=== PATIENT | female | born 1955 | race Caucasian/White ===

== ENCOUNTER 2021-05-30 14:05 | Emergency (ER) | payer MEDICARE, BC, SELFPAY ==
--- NOTE | 2021-05-30 14:15 | ED.SKABFB ---
HPI - Skin/Abscess/Foreign Bdy General Chief complaint: Skin/Abscess/Foreign Body Stated complaint: Blisters on lower leg Time Seen by Provider: 05/30/21 14:15 Source: patient, RN notes reviewed and old records reviewed Mode of arrival: ambulatory Limitations: no limitations History of Present Illness HPI narrative: 66-year-old female presents to the [facility] with redness, blisters and swelling to the right lower leg. At first denied any past medical history. When asked again patient states she does have a history of hypertension however she lost a lot of weight and was told she did not need her blood pressure medication anymore. States the last time she saw Was approximately 3 years ago. Denies any history of diabetes, congestive heart failure. Has had wounds on her right lower leg for approximately 8 weeks, 1 week ago started with small blisters similar to the left leg. Patient is also complaining of shortness of breath. Has not been able to lay flat for several months. Related Data Home Medications Medication Instructions Recorded Confirmed No Home Medications 05/30/21 05/30/21 Allergies Allergy/AdvReac Type Severity Reaction Status Date / Time latex Allergy Unknown Verified 10/26/09 11:29 No Known Allergies Allergy Unverified 09/19/17 12:37 Review of Systems Review of Systems: All systems reviewed & are unremarkable except as noted in HPI and below Constitutional: Constitutional: Reports no additional constitutional complaints, Denies chills, Denies fever(s), Denies headache(s) and Denies weakness Eyes: Eyes: Reports no additional eye complaints and Denies change in vision ENT: Reports system reviewed and no additional complaints, except as documented, Denies dysphagia, Denies dizziness, Denies headache(s), Denies nasal congestion and Denies sore throat Cardiovascular: Cardiovascular: Reports no additional cardiovascular complaints, Denies chest pain, Denies syncope and Denies dyspnea Respiratory: Respiratory: Reports as per HPI, Denies chest congestion, Denies cough, Reports dyspnea (When laying flat) and Denies wheezing Gastrointestinal: Gastrointestinal: Reports no additional gastrointestinal complaints, Denies abdominal pain, Denies dysphagia, Denies diarrhea, Denies nausea and Denies vomiting Musculoskeletal: Musculoskeletal: Reports as per HPI and Denies numbness Integumentary/Breasts: Skin/Breast: Reports as per HPI, Reports erythema (Bilateral lower legs, worse on right than left), Reports sores (Open sores right lower leg) and Reports other (Blisters noted to left lower leg.) Neurologic: Reports system reviewed and no additional complaints, except as documented, Denies dizziness, Denies syncope, Denies headache(s), Denies focal weakness, Denies numbness and Denies weakness Psychiatric: Psychiatric: Reports no additional psychiatric complaints Allergic/Immunologic: Allergic/Immunologic: Reports no additional allergic/immunologic complaints PMFSH Past Medical History Medical History (Updated 05/30/21 @ 14:53 by Oxana Gordon APRN) Patient denies medical problems Surgical History Surgical History (Updated 05/30/21 @ 14:48 by Oxana Gordon APRN) No history of previous surgery Social History Social History (Updated 05/30/21 @ 14:48 by Oxana Gordon APRN) Gender identity (if verbalized by the patient): Female Comments At the time of my signature, I reviewed and agree with the nursing past medical, surgical, social, and family history. There is no relevant family history pertinent to the patient complaint. Exam Const: General: no acute distress, alert and ill appearing chronically Nutritional Appearance: well nourished and obese morbidly obese Orientation/consciousness: patient oriented x3 Limitations: no limitations HENMT: Head: normal to inspection Ears: external ears normal Eyes: Pupils: Equal, round and reactive pupils present Neck: Neck: normal visual inspection,
[2021-05-30 14:17] VITALS: BP 198/106; PULSE 111; RESP 20; TEMP 37.2; O2SAT 99
[2021-05-30 14:33] LABS: Glucose Point of Care 314 mg/dl (65-105)
--- NOTE | 2021-05-30 14:44 | PC.NURSE ---
pt moved to room 1 from room 6. pt feeling sob after walking to room. ekg done, ems en route and iv established.
--- NOTE | 2021-05-30 16:07 | ECG_ITS ---
Measurements Intervals [place] Rate: 106 P: 69 GA: 159 QRS: 38 QRSD: 98 T: 9 QT: 297 QTc: 394 Interpretive Statements SINUS TACHYCARDIA WITH OCCASIONAL SUPRAVENTRICULAR AND VENTRICULAR PREMATURE COMPLEXES NONSPECIFIC ST & T-WAVE ABNORMALITY BASELINE ARTIFACT ANTEROLATERAL ST ABNORMALITY CONSIDER ISCHEMIA ABNORMAL ECG COMPARED TO ECG 06/17/2018 13:14:20 ST-WAVE ABNORMALITY MORE PROMINENT Electronically Signed On 05-30-2021 16:58:36 CDT by Kareem Barker M.D.
== END 2021-05-30 14:47 | disposition short-term general hospital (02) ==
PROVIDERS: Emergency Provider Nurse Practitioner
DX: L03.115 Cellulitis of right lower limb (principal); I10 Essential (primary) hypertension; E11.9 Type 2 diabetes mellitus without complications; S80.822A Blister (nonthermal), left lower leg, initial encounter; S81.801A Unspecified open wound, right lower leg, initial encounter; X58.XXXA Exposure to other specified factors, initial encounter
CPT/HCPCS: 82948; 93005; 99215; G0463

== ENCOUNTER 2021-05-30 15:08 | Inpatient (IN) | payer MEDICARE, BC, SELFPAY ==
[2021-05-30] VITALS (7 sets, daily range): BP systolic 151–197; BP diastolic 66–90; PULSE 92–102; RESP 16–20; TEMP 36.1–36.8; O2SAT 95–100; BMI 41.5
--- NOTE | ~2021-05-30 | XR_ITS ---
EXAMINATION: XR abdomen/kub 1V EXAM DATE: 06/01/2021 14:38 INDICATION: Nausea, vomiting. TECHNIQUE: Frontal projection(s) of the abdomen for interpretation. There is no prior study for marysol cisneros. FINDINGS: There is expected amount of colonic stool and gas. No small bowel dilation, nonobstructiv e bowel gas pattern. There are no suspicious calcifications identified. There is no organomegaly suspected. The bones are unremarkable. IMPRESSION: Unremarkable abdomen x-ray exam. Reviewed, dictated and finalized at location B.
--- NOTE | ~2021-05-30 | US_ITS ---
EXAMINATION: US arterial duplex LE BI, US arterial ankle brachial ind DATE: 05/31/2021 10:30 INDICATION: Nonhealing wound in the right lower limb. Vascular disease risk factors of diabetes, hype rtension and smoking. TECHNIQUE: Segmental pressures and plethysmographic and Doppler waveforms of the brachial and lower e xtremity arteries were obtained. Additional grayscale and color Doppler imaging of the arteries of th e bilateral lower limbs were obtained. COMPARISON: None. FINDINGS: Right and left brachial artery pressures of 199 mm Hg and 189 mm Hg, respectively, are concordant (no rmal difference <= 30 mmHg). The right ankle-brachial index (MANISH) was unable to be obtained due to inability to occlude the vessel s at the right ankle. The right great toe-brachial index (TBI) is 0.52 (normal >= 0.65). Arterial Dop pler waveforms demonstrate brisk systolic upstrokes throughout the arteries of the right lower limb. No evident hemodynamically significant or plaque noted on grayscale imaging or focally significant gr adient peaks systolic velocities to suggest significant stenosis and the arteries of the right lower limb. The left MANISH was unable to be obtained due to inability to occlude the vessels at the left ankle. The right great toe-brachial index (TBI) is 0.57 (normal >= 0.65). Arterial Doppler waveforms demonstrat e brisk systolic upstrokes throughout the arteries of the left lower limb. No evident hemodynamically significant or plaque noted on grayscale imaging or focally significant gradient peaks systolic [place] to suggest significant stenosis and the arteries of the left lower limb. IMPRESSION: 1. Mild arterial occlusive disease to the bilateral lower limbs with mildly decreased bilateral TBIs. Reviewed, dictated and finalized at location A. IMPRESSION: 1. Mild arterial occlusive disease to the bilateral lower limbs with mildly dec reased bilateral TBIs.
[2021-05-30 15:16] LABS: Glucose Point of Care 319 mg/dl (65-105)
[2021-05-30 16:14] LABS: Basophils Absolute Auto 0.1 K/mm3 (0.0-0.1); Basophils Percent Auto 0.4 % (0.2-1.2); Eosinophils Absolute Auto 0.2 K/mm3 (0-0.3); Hematocrit 42.9 % (37.0-47.0); Hemoglobin 14.4 g/dL (12.0-15.0); Immature Granulocyte Absolute 0.04 K/mm3 (0.00-0.031); Immature Granulocyte Percent A 0.3 % (0-0.5); Lymphocytes Absolute Auto 1.99 K/mm3 (0.9-3.2); Lymphocytes Percent Auto 16.3 % (18.3-44.2); Mean Corpuscular HGB Conc 33.6 g/dl (32-36); Mean Corpuscular Hemoglobin 30.6 pg (26-34); Mean Corpuscular Volume 91.3 fl (80-100); Mean Platelet Volume 11.5 fl (7.4-10.4); Monocytes Percent Auto 7.9 % (2.6-8.5); Neutrophils Absolute Auto 8.9 K/mm3 (1.3-6.7); Neutrophils Percent Auto 73.1 % (45.5-73.1); Platelet Count Result 156 k/mm3 (150-375); Red Cell Distribution Width 13.4 % (11.5-14.5); White Blood Count 12.2 K/mm3 (4.5-10.0)
[2021-05-30 16:20] LABS: Add Urine Microscopic? YES; Appearance Urine Cloudy (Clear); Bacteria Urine Trace /hpf; Bilirubin Urine Negative (Negative); Blood Urine 1+ (Negative); Color Urine Yellow (Yellow); Glucose Urine UA 3+ mg/dL (Negative); Ketones Urine Trace mg/dL (Negative); Leukocyte Esterase Ur 3+ LEU/UL (Negative); Mucus Urine Rare /lpf; Nitrate Urine Negative (Negative); Protein Urine 2+ mg/dL (Negative); RBC Urine 21-50 /hpf (0-2); Specific Grav Ur 1.018 (1.001-1.035); Squamous Epithelial Cell Urine Few /hpf (Few); Urobilinogen Urine Negative mg/dL (<2.0); WBC Urine 51-75 /hpf
[2021-05-30 16:26] LABS: Alanine Aminotransferase 16 U/L (4-35); Alkaline Phosphatase 113 U/L (38-126); Anion Gap 4 mmol/L (8-16); Aspartate Amino Transferase 16 U/L (14-36); Bilirubin,Total 0.9 mg/dL (0.2-1.3); Blood Urea Nitrogen 12 mg/dL (7-17); Calcium 8.9 mg/dL (8.4-10.2); Carbon Dioxide 31 mmol/L (22-30); Chloride 99 mmol/L (98-107); Estimated Glomerular Filt Rate > 60; Glucose 340 mg/dL (65-110); Lipase 131 U/L (23-300); Potassium 4.2 mmol/L (3.4-5.0); Sodium 134 mmol/L (137-145)
[2021-05-30 16:41] LABS: Lactic Acid Reflex 1.2 mmol/L (0.7-2.1)
--- NOTE | 2021-05-30 16:44 | ED.GENADULT ---
HPI - General Adult General Chief complaint: Unspecified Stated complaint: possible leg cellulitis Time Seen by Provider: 05/30/21 15:22 Source: patient History of Present Illness HPI narrative: 66-year-old female presents to the emergency department for evaluation of a right lower leg cellulitis. Patient states she has had the right lower leg wound for approximately 6 to 8 weeks. Patient states it started off as a small lesion but has been steadily worsening. Patient does report increased generalized fatigue. Patient presented to urgent care for evaluation. Patient was found to have an elevated blood sugar. On arrival to the emergency department the patient's blood sugar was greater than 340. Patient does report increased thirst and increased urination. Patient denies ever being previously diagnosed with diabetes. Patient reports she had previously been on blood pressure medications but was able to stop those approximately 4 to 5 years ago due to her blood pressure improving due to weight loss. Patient states over the last few years she has had increased weight gain and worsening blood pressure. Patient also describes orthopnea and sleeps in a chair most nights. Related Data Home Medications Medication Instructions Recorded Confirmed No Home Medications 05/30/21 05/30/21 Allergies Allergy/AdvReac Type Severity Reaction Status Date / Time latex Allergy Unknown Difficulty Verified 05/30/21 15:55 Breathing Review of Systems Review of Systems: CONSTITUTIONAL: Increased generalized fatigue EYES: Denies visual changes, redness, or discharge. ENT: Denies rhinorrhea, congestion, sore throat, or otalgia. CARDIOVASCULAR: Denies chest pain, palpitations, or edema. RESPIRATORY: Orthopnea and exertional shortness of breath GASTROINTESTINAL: Denies abdominal pain, nausea, vomiting, or diarrhea. GENITOURINARY: Denies dysuria or hematuria. SKIN: Worsening cellulitis of left lower extremity MUSCULOSKELETAL: Denies back pain, joint pain, or myalgia. NEUROLOGIC: Denies headache, numbness, or weakness. All systems reviewed & are unremarkable except as noted in HPI and below PMFSH Past Medical History Medical History (Updated 05/30/21 @ 17:19 by Austen Perez MD) Patient denies medical problems Surgical History Surgical History (Updated 05/30/21 @ 14:48 by Oxana Gordon APRN) No history of previous surgery Social History Social History (Updated 05/30/21 @ 14:48 by Oxana Gordon APRN) Gender identity (if verbalized by the patient): Female Exam Narrative: APPEARANCE: Well appearing, no pain, no distress, well-nourished. HEAD: normocephalic, atraumatic. EYES: PERRLA/EOMI, conjunctivae clear. NOSE: Normal no drainage NECK: Supple. No adenopathy, no masses. RESPIRATORY: Airway patent, respirations nonlabored. Clear to auscultation bilaterally, no rales, rhonchi, wheezing. CARDIOVASCULAR: Regular rate and rhythm without murmurs rubs or gallops. ABDOMINAL: Soft, nontender, nondistended, normal bowel sounds MUSCULOSKELETAL: Moves all extremities. Bilateral lower extremity edema. Right lower extremity cellulitis involving lateral aspects of the lower extremity NEURO: Alert. Cranial nerves II through XII intact. Grossly intact SKIN: Right lower extremity cellulitis Course Course Emergency Course: Patient was started on Rocephin for her cellulitis. Patient also has a urinary tract infection. Patient was hyperglycemic and was treated with insulin and IV fluids. Hemoglobin A1c is 11.1. No evidence of DKA. Case was discussed with the hospitalist and patient was accepted for admission. Vital Signs Vital signs: Vital Signs Temperature 98.2 F 05/30/21 15:20 Pulse Rate 101 H 05/30/21 15:20 Respiratory Rate 18 05/30/21 15:20 Blood Pressure 194/84 H 05/30/21 15:20 Pulse Oximetry 99 05/30/21 15:20 Temperature 98.2 F 05/30/21 15:20 Pulse Rate 95 05/30/21 17:43 Respiratory Rate 19 0
[2021-05-30] MEDS: INSULIN HUMAN REGULAR (*BKC) 100 UNITS/ML 7 UNITS IV PUSH (16:53)
[2021-05-30 17:25] LABS: Hemoglobin A1C 11.1 % (<5.7)
--- NOTE | 2021-05-30 17:25 | PM.IMHP ---
H&P: HPI History of Present Illness Date/Time: 05/30/21 17:25 Chief Complaint: Hyperglycemia and suspected right leg cellulitis. Narrative: This is a 66-year-old female with hypertension and obstructive sleep apnea who presented to the emergency department from urgent care for evaluation of hyperglycemia and suspected right leg cellulitis. About 2 months ago she developed small blisters on her lower legs and within the last month or so the blisters on her right leg have increased in size and are now open. The wound is shallow and she has been trying to take meticulous care of it, applying triple antibiotic ointment and dry bandages frequently as apparently it has started to weep. The last couple of days she has developed redness around the wound with a burning discomfort. She went to urgent care today for evaluation and labs done at that time showed a glucose of well over 300 and she was sent to the ER. She has not seen a doctor for over 5 years and she has no known history of prediabetes or diabetes. With further questioning she does endorse and ongoing yeast infection for the last 6 months which has not improved with [id number] treatment. She denies fever, chills, sweats, nausea, and vomiting. Review of Systems Review of Systems: Twelve systems were reviewed. She had previously lost weight was able to come off of her antihypertensives however over the last 5 years her weight has began to creep back up as well as her blood pressure. She was previously given a CPAP however she has not used that for many years as it never really worked correctly anyway, per her report. She has always drank a lot of water and she has not noticed any significant change in her consumption. She has mild blurry vision in her eyes which she attributes to forming cataracts. Appetite has been okay. No dysuria, frequency, or urgency. Except as documented, all other systems were reviewed and are negative. [facility], [facility] Past Medical History Medical History Hypertension Obstructive sleep apnea Surgical History Surgical History (Updated 05/30/21 @ 21:47 by Samina Iqbal PA-C) History of laparoscopy With destruction of ovarian cyst. Family History Family History (Updated 05/30/21 @ 21:47 by Samina Iqbal PA-C) Other Diabetes mellitus Hypertension Social History Social History (Updated 05/30/21 @ 21:48 by Samina Iqbal PA-C) Social History: Surrogate decision maker: Stas Beebe, spouse. Code status: Full code. Smoking packs per day: 1 Smoking cigarettes per day: 20.0 Years smoked: 40 Smoking pack-years: 40.00 Smoking status: Former smoker Second hand tobacco smoke exposure: No Alcohol intake: never Substance use: never Substance use type: does not use Additional living arrangements comments: The patient lives with her in [place]. Additional occupation/education comments: Retired from [employer]. Spiritual care concerns: No Meds Home Medications and Allergies Home Medications Medication Instructions Recorded Confirmed Type No Home Medications 05/30/21 05/30/21 History Allergies Allergy/AdvReac Type Severity Reaction Status Date / Time latex Allergy Unknown Difficulty Verified 05/30/21 15:55 Breathing Vital Signs Vital Signs - 24 hr 05/30/21 15:20 05/30/21 15:54 05/30/21 16:42 Temperature 98.2 F Pulse Rate 101 H 102 H 93 Respiratory Rate 18 20 16 Blood Pressure 194/84 H 197/90 H 168/77 H Pulse Oximetry 99 99 97 Exam Narrative: General: Well-developed, nontoxic-appearing female sitting up in bed. HEENT: Wearing glasses. PERRL, EOMI. Sclerae anicteric. Tacky mucous membranes. Neck: Supple. Respiratory: Lungs are clear to auscultation bilaterally. Cardiovascular: Regular rate and rhythm with S1-S2. Gastrointestinal: Abdomen is soft, obese, nontender, and nondistended with positive bowel s
[2021-05-30 17:30] LABS: NT Pro B Type Natriuretic Pept 548 pg/mL (5-100)
[2021-05-30] MEDS: SODIUM CHLORIDE 0.9% IV 1,000 ML 999 ML IV CONT (17:43)
--- NOTE | 2021-05-30 17:43 | PC.NURSE ---
BS 269
[2021-05-30 17:46] LABS: Glucose Point of Care 269 mg/dl (65-105)
--- NOTE | 2021-05-30 17:55 | PC.NURSE ---
Ordered a dinner tray for pt at this time, called dietary and will send tray up to pt.
--- NOTE | 2021-05-30 19:22 | PC.NURSE ---
Assumed care of pt at this time, report taken from Paula HANSEN. Pt alert and upright on stretcher, food tray at bedside. Pt updated on pOC.
--- NOTE | 2021-05-30 20:18 | ADMGEN ---
This patient, Nelli Beebe, was admitted to [facility] Surg Room 312-01 at 1999. Patient/family oriented to hospital policies and general routines including ID bracelet, bed and alarms, visiting hours, pain management, procedures, bathroom and other care routines, personal items, smoking policy, room service/diet, and visiting hours. Information on how to activate the Rapid Response Team has been discussed. Patient/Family are encouraged to report perceived risks to care and to ask questions if they do not understand what they are told or what they should do.
[2021-05-30 21:27] LABS: Glucose Point of Care 299 mg/dl (65-105)
--- NOTE | 2021-05-30 23:45 | PCRCNOTE ---
Rt explained reasoning for the sleep study test, Pt. said they would be willing to do it but refusing at this time because they're unable to sleep due to pain. Pt will resume the test tomorrow
--- NOTE | 2021-05-31 | ECHO_ITS ---
Patient Info Name: Nelli Beebe Age: 66 years : 1955 Gender: Female Ht: 63 in Wt: 233 lbs BSA: 2.22 m2 HR: 87 bpm BP: 153 / 88 mmHg Heart Rhythm: Sinus Rhythm Technical Quality: Fair Exam Date: 05/31/2021 2:48 PM Exam Location: [facility] Pulmonary Patient Status: Inpatient Admit Date: 05/30/2021 Staff Ordering Physician: Eduar Jackson Safety Instruction Police Officer: Simin Powers RDCS Attending Provider: Agustin Gagnon MD Referring Physician: Manuel CALVILLO; Exam Type: CA echo dop color flow w con Study Info Indications - Fluid overload, swelling Complete two-dimensional, color flow and Doppler transthoracic echocardiogram is performed with contrast to opacify the left ventricle and to improve the deliniation of the left ventricle endocardial borders. Contrast/Agitated Saline Contrast/Ag. Saline: Definity Amount: 2.00 ml Administered By: Simin Powers RDCS Existing IV Access: Yes IV Access Condition: patent with no signs of infiltration Summary 1. Definity contrast injected to improve visualization. 2. Mild LVH with normal systolic function and grade 1 diastolic noncompliance. 3. Mild left atrial enlargement. 4. Mild aortic valve sclerosis with no functional stenosis. Left Ventricle Left ventricular chamber dimension is normal. Left ventricular systolic function is normal, estimated at Empty. There is mild concentric increased left ventricular wall thickness. The left ventricular diastolic function is grade I diastolic dysfunction. Right Ventricle Right ventricular chamber dimension is normal. Left Atria Left atrial chamber dimension is mildly enlarged. Right Atria Right atrial chamber dimension is normal. Aortic Valve The aortic valve is trileaflet. There is mild aortic valve sclerosis. Pulmonic Valve The pulmonic valve is normal. Mitral Valve The mitral valve has normal leaflets. Tricuspid Valve The tricuspid valve leaflets are normal. Pericardium/Pleural The pericardium appears normal. Aorta The aortic root size at the sinus of Valsalva is normal. Left Ventricular Outflow Tract Name Value Normal LVOT 2D LVOT Diameter 2.03 cm LVOT Doppler LVOT Peak Gradient 6 mmHg LVOT Mean Gradient 3 mmHg LVOT VTI 20.86 cm LVOT VTI/AV VTI Ratio 0.53 LVOT Stroke Volume 67.36 ml LVOT CO 5.78 l/min LVOT CI 2.60 L/min/m2 Pulmonic Valve Name Value Normal RVOT Doppler RVOT Peak Gradient 4 mmHg PV Doppler PV Peak Gradient 8 mmHg Mitral Valv
[2021-05-31] MEDS: ACETAMINOPHEN 325 MG TABLET 650 MG PO (02:55)
[2021-05-31 05:43] VITALS: BP 153/88; PULSE 87; RESP 16; TEMP 35.5; O2SAT 98
[2021-05-31 06:20] LABS: Hematocrit 41.1 % (37.0-47.0); Hemoglobin 13.4 g/dL (12.0-15.0); Mean Corpuscular HGB Conc 32.6 g/dl (32-36); Mean Corpuscular Volume 91.9 fl (80-100); Mean Platelet Volume 11.4 fl (7.4-10.4); Platelet Count Result 163 k/mm3 (150-375); Red Blood Count 4.47 M/mm3 (4.2-5.4); Red Cell Distribution Width 13.3 % (11.5-14.5); White Blood Count 11.5 K/mm3 (4.5-10.0)
[2021-05-31 06:36] LABS: Alanine Aminotransferase 13 U/L (4-35); Albumin Level 3.6 g/dL (3.5-5.1); Alkaline Phosphatase 91 U/L (38-126); Anion Gap 3 mmol/L (8-16); Aspartate Amino Transferase 15 U/L (14-36); Blood Urea Nitrogen 9 mg/dL (7-17); Calcium 8.5 mg/dL (8.4-10.2); Carbon Dioxide 31 mmol/L (22-30); Chloride 100 mmol/L (98-107); Estimated CRCL calculation 129 ml/min; Estimated Glomerular Filt Rate > 60; Glucose 285 mg/dL (65-110); Magnesium 1.7 mg/dL (1.6-2.3); Potassium 4.6 mmol/L (3.4-5.0); Sodium 134 mmol/L (137-145)
[2021-05-31 08:16] LABS: Glucose Point of Care 274 mg/dl (65-105)
--- NOTE | 2021-05-31 08:45 | P.PNIM_ITS ---
Progress Note: A&P Assessment and Plan (1) Cellulitis of right leg: Code(s): L03.115 - Cellulitis of right lower limb Status: Acute Assessment and Plan: * Presented from urgent care for evaluation of redness around a wound that has been present for a couple of months on her right lower leg. * Cellulitis noted around wound * Probably secondary to hyperglycemia * Get arterial duplex, and Doppler * Continue vancomycin and imipenem per antibiotic stewardship recommendations * wound nurse consult for recommendations * Wound culture if possible * Blood cultures pending * WBC slightly elevated at 11.5 today * trend labs (2) Wound of right leg: Code(s): S81.801A - Unspecified open wound, right lower leg, initial encounter Status: Acute Assessment and Plan: * MANISH and duplex ordered * Unhealing * Could be cellulitis contributing (3) New onset type 2 diabetes mellitus: Code(s): E11.9 - Type 2 diabetes mellitus without complications Status: Acute Assessment and Plan: * New onset type 2 diabetes mellitus with hyperglycemia and a random glucose of 319 * Hemoglobin A1c is 11.1% * Continue metformin and Jardiance * Probably needs Lantus * ISS, adjust as indicated * Diabetes and site acquisition specialist consult thank you * Trend glucose * Adjust therapy as indicated (4) Hypertension: Code(s): I10 - Essential (primary) hypertension Status: Inactive Assessment and Plan: * Blood pressure 153/88 * Started on losartan and thiazide * Continue to trend BP * adjust therapy as indicated (5) Obstructive sleep apnea: Code(s): G47.33 - Obstructive sleep apnea (adult) (pediatric) Status: Acute Assessment and Plan: * Apnea link ordered for tonight * History of SONY (6) Abnormal urinalysis: Code(s): R82.90 - Unspecified abnormal findings in urine Status: Acute Assessment and Plan: * Yellow cloudy urine 2+ protein, 3+ glucose, 1+ blood, 3+ leukocyte esterase, W BC 51-75, Bacteria trace * On imipenem and vanco * Urine culture pending * Tailor antibiotics to culture results Time Spent With Patient Time with patient: Greater than 35 minutes Subjective Date/time seen: 05/31/21 0845 Interval history: Date/Time: 05/30/21 17:25 Narrative: This is a 66-year-old female with hypertension and obstructive sleep apnea who presented to the emergency department from urgent care for evaluation of hyperglycemia and suspected right leg cellulitis. About 2 months ago she developed small blisters on her lower legs and within the last month or so the blisters on her right leg have increased in size and are now open. The wound is shallow and she has been trying to take meticulous care of it, applying triple antibiotic ointment and dry bandages frequently as apparently it has started to weep. The last couple of days she has developed redness around the wound with a burning discomfort. She went to urgent care today for evaluation and labs done at that time showed a glucose of well over 300 and she was sent to the ER. She has not seen a doctor for over 5 years and she has no known history of prediabetes or diabetes. With further questioning she does endorse and ongoing y east infection for the last 6 months which has not improved with [id number] treatment. She denies fever, chills, sweats, nausea, and vomiting. Date/Time 05/31/21 0636 patient is lying in bed. Sh
--- NOTE | 2021-05-31 08:45 | PM.IMPN ---
Progress Note: A&P Assessment and Plan (1) Cellulitis of right leg: Code(s): L03.115 - Cellulitis of right lower limb Status: Acute Assessment and Plan: Presented from urgent care for evaluation of redness around a wound that has been present for a couple of months on her right lower leg. Cellulitis noted around wound Probably secondary to hyperglycemia Get arterial duplex, and Doppler Continue vancomycin and imipenem per antibiotic stewardship recommendations wound nurse consult for recommendations Wound culture if possible Blood cultures pending WBC slightly elevated at 11.5 today trend labs (2) Wound of right leg: Code(s): S81.801A - Unspecified open wound, right lower leg, initial encounter Status: Acute Assessment and Plan: MANISH and duplex ordered Unhealing Could be cellulitis contributing (3) New onset type 2 diabetes mellitus: Code(s): E11.9 - Type 2 diabetes mellitus without complications Status: Acute Assessment and Plan: New onset type 2 diabetes mellitus with hyperglycemia and a random glucose of 319 Hemoglobin A1c is 11.1% Continue metformin and Jardiance Probably needs Lantus ISS, adjust as indicated 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 Trend glucose Adjust therapy as indicated (4) Hypertension: Code(s): I10 - Essential (primary) hypertension Status: Inactive Assessment and Plan: Blood pressure 153/88 Started on losartan and thiazide Continue to trend BP adjust therapy as indicated (5) Obstructive sleep apnea: Code(s): G47.33 - Obstructive sleep apnea (adult) (pediatric) Status: Acute Assessment and Plan: Apnea link ordered for tonight History of SONY (6) Abnormal urinalysis: Code(s): R82.90 - Unspecified abnormal findings in urine Status: Acute Assessment and Plan: Yellow cloudy urine 2+ protein, 3+ glucose, 1+ blood, 3+ leukocyte esterase, WBC 51-75, Bacteria trace On imipenem and vanco Urine culture pending Tailor antibiotics to culture results Time Spent With Patient Time with patient: Greater than 35 minutes Subjective Date/time seen: 05/31/21 0845 Interval history: Date/Time: 05/30/21 17:25 Narrative: This is a 66-year-old female with hypertension and obstructive sleep apnea who presented to the emergency department from urgent care for evaluation of hyperglycemia and suspected right leg cellulitis. About 2 months ago she developed small blisters on her lower legs and within the last month or so the blisters on her right leg have increased in size and are now open. The wound is shallow and she has been trying to take meticulous care of it, applying triple antibiotic ointment and dry bandages frequently as apparently it has started to weep. The last couple of days she has developed redness around the wound with a burning discomfort. She went to urgent care today for evaluation and labs done at that time showed a glucose of well over 300 and she was sent to the ER. She has not seen a doctor for over 5 years and she has no known history of prediabetes or diabetes. With further questioning she does endorse and ongoing yeast infection for the last 6 months which has not improved with [id number] treatment. She denies fever, chills, sweats, nausea, and vomiting. Date/Time 05/31/21 0845 patient is lying in bed. She does have a spot on her right leg that is red with what looks to be scabbing. She stated that her redness started as a blister the size of her pinky nail and has grown into what it is today. She does have a pain and issues down to the big toe with tingling and numbness. Patient denies any fever heat to that area. She also denies any chest pain, sweats, fevers, chills, nausea, vomiting or diarrhea constipation. She denies having any urination issues but did state that she sits on the to
[2021-05-31] MEDS: INSULIN ASPART (*BKC) 100 UNITS/ML SUB-Q ×3 (09:26→17:17)
[2021-05-31] MEDS: LOSARTAN POTASSIUM 25 MG TABLET PO (09:27)
[2021-05-31] MEDS: EMPAGLIFLOZIN 10 MG TABLET PO (09:27)
[2021-05-31] MEDS: metFORMIN HCL 500 MG TABLET PO ×2 (09:27→17:19)
[2021-05-31] MEDS: ENOXAPARIN 40 MG/0.4 ML SYRINGE SUB-Q (09:27)
[2021-05-31] MEDS: MAGNESIUM SULF 2 GM/WATER 50ML 2 GM/50 ML BAG IVPB (09:28)
[2021-05-31] MEDS: traMADol HCL (*CRX) 50 MG TABLET PO ×2 (10:40→17:20)
[2021-05-31 11:52] LABS: Glucose Point of Care 293 mg/dl (65-105)
[2021-05-31 12:00] VITALS: BMI 41.4
[2021-05-31] MEDS: BETAMETHASONE/CLOTRIMAZOLE CR 15 GM TUBE 1 APPLIC TOPICAL ×2 (12:16→20:57)
[2021-05-31 14:00] VITALS: BP 141/68; PULSE 93; RESP 20; TEMP 35.9; O2SAT 98
--- NOTE | 2021-05-31 14:50 | PCDIET ---
Pt educated on diabetic recommendations for improved glucose, carbohydrate sources, carb counting, portion control and timing of meals. pt demonstrated excellent comprehension, family present as well. Handouts provided. Thank you for the referral
[2021-05-31] MEDS: PERFLUTREN LIPID MICROSPHERES 1.5 ML VIAL DILUTED TO 10 ML TOTAL VOLUME IV PUSH (15:42)
--- NOTE | 2021-05-31 15:43 | IVDEFINITY ---
Prior to administration of IV Definity the patient was educated on the risks and benefits of the imaging enhancing agent including potential adverse side effects. The patient verbalized understanding. Allergies were verified. No exclusion criteria were identified and at least one of the following inclusion criteria were met: 1) physician request, 2) patient technically difficult to image (per the [place] [employer] guidelines of two or more segments not discernable within the apical view), or 3) questionable left ventricular function. ?
[2021-05-31 16:51] LABS: Glucose Point of Care 226 mg/dl (65-105)
[2021-05-31] MEDS: ONDANSETRON INJ 4 MG/2 ML VIAL IV PUSH ×2 (18:00→22:17)
[2021-05-31 20:05] VITALS: BP 142/64; PULSE 82; RESP 16; TEMP 36.4; O2SAT 95
[2021-05-31 21:05] LABS: Glucose Point of Care 239 mg/dl (65-105)
[2021-05-31 21:39] VITALS: O2SAT 95
[2021-06-01] MEDS: ONDANSETRON INJ 4 MG/2 ML VIAL IV PUSH ×3 (05:51→15:42)
[2021-06-01 06:29] VITALS: BP 153/68; PULSE 82; RESP 18; TEMP 36.6; O2SAT 97
[2021-06-01 06:51] LABS: Basophils Absolute Auto 0.1 K/mm3 (0.0-0.1); Basophils Percent Auto 0.6 % (0.2-1.2); Eosinophils Absolute Auto 0.2 K/mm3 (0-0.3); Hematocrit 42.7 % (37.0-47.0); Hemoglobin 13.8 g/dL (12.0-15.0); Immature Granulocyte Absolute 0.03 K/mm3 (0.00-0.031); Immature Granulocyte Percent A 0.3 % (0-0.5); Immature Platelet Fraction Pct 9.8 % (0.9-11.2); Lymphocytes Absolute Auto 1.97 K/mm3 (0.9-3.2); Lymphocytes Percent Auto 18.5 % (18.3-44.2); Mean Corpuscular HGB Conc 32.3 g/dl (32-36); Mean Corpuscular Hemoglobin 30.5 pg (26-34); Mean Corpuscular Volume 94.5 fl (80-100); Monocytes Percent Auto 9.2 % (2.6-8.5); Neutrophils Absolute Auto 7.4 K/mm3 (1.3-6.7); Neutrophils Percent Auto 69.4 % (45.5-73.1); Platelet Count Result 138 k/mm3 (150-375); Red Blood Count 4.52 M/mm3 (4.2-5.4); Red Cell Distribution Width 13.7 % (11.5-14.5); White Blood Count 10.6 K/mm3 (4.5-10.0)
[2021-06-01 07:00] LABS: Alanine Aminotransferase 10 U/L (4-35); Albumin Level 3.5 g/dL (3.5-5.1); Alkaline Phosphatase 85 U/L (38-126); Anion Gap 9 mmol/L (8-16); Aspartate Amino Transferase 19 U/L (14-36); Blood Urea Nitrogen 12 mg/dL (7-17); Calcium 8.6 mg/dL (8.4-10.2); Carbon Dioxide 23 mmol/L (22-30); Chloride 104 mmol/L (98-107); Estimated CRCL calculation 92 ml/min; Estimated Glomerular Filt Rate > 60; Glucose 178 mg/dL (65-110); Magnesium 2.4 mg/dL (1.6-2.3); Potassium 4.6 mmol/L (3.4-5.0); Sodium 136 mmol/L (137-145)
[2021-06-01 08:11] LABS: Glucose Point of Care 165 mg/dl (65-105)
[2021-06-01 08:58] VITALS: O2SAT 95
--- NOTE | 2021-06-01 10:45 | P.PNIM_ITS ---
Progress Note: A&P Assessment and Plan (1) Cellulitis of right leg: Code(s): L03.115 - Cellulitis of right lower limb Status: Acute Assessment and Plan: * Presented from urgent care for evaluation of redness around a wound that has been present for a couple of months on her right lower leg. * Cellulitis noted around wound * Probably secondary to hyperglycemia * Get arterial duplex, and Doppler * Continue vancomycin and imipenem per antibiotic stewardship recommendations * wound nurse consult for recommendations * Wound culture if possible * Blood cultures pending * WBC slightly elevated at 10.6 today * trend labs (2) Wound of right leg: Code(s): S81.801A - Unspecified open wound, right lower leg, initial encounter Status: Acute Assessment and Plan: * MANISH and duplex does show decreased flow * Unhealing * Could be cellulitis contributing * venous stasis also has a role * Will garcía (3) New onset type 2 diabetes mellitus: Code(s): E11.9 - Type 2 diabetes mellitus without complications Status: Acute Assessment and Plan: * New onset type 2 diabetes mellitus with hyperglycemia and a random glucose of 319 * Glucose today is 178 * Hemoglobin A1c is 11.1% * Continue metformin and Jardiance * Probably needs Lantus * ISS, adjust as indicated * Diabetes and business consult consult thank you * Trend glucose * Adjust therapy as indicated (4) Hypertension: Code(s): I10 - Essential (primary) hypertension Status: Inactive Assessment and Plan: * Blood pressure 153/68 * Started on losartan and thiazide * Continue to trend BP * adjust therapy as indicated (5) Obstructive sleep apnea: Code(s): G47.33 - Obstructive sleep apnea (adult) (pediatric) Status: Acute Assessment and Plan: * Apnea link ordered for tonight * History of SONY (6) UTI (urinary tract infection): Code(s): N39.0 - Urinary tract infection, site not specified Status: Acute Assessment and Plan: * Yellow cloudy urine 2+ protein, 3+ glucose, 1+ blood, 3+ leukocyte esterase, WBC 51-75, Bacteria trace * On imipenem and vanco * Urine culture grew staphylococcus aureus * Tailor antibiotics to culture results (7) Nausea & vomiting: Code(s): R11.2 - Nausea with vomiting, unspecified Status: Acute Assessment and Plan: * Has been nauseated and vomiting * Zofran and pepcid on board * KUB ordered * BM reported this morning * Could anxiety induced (8) Peripheral neuropathy: Code(s): G62.9 - Polyneuropathy, unspecified Status: Acute Assessment and Plan: * Reports numbness and tingling * Start gabapentin 100mg TID * Trend symptoms * Titrate as indicated Time Spent With Patient Time with patient: Greater than 35 minutes Subjective Date/time seen: 06/01/21 1045 Interval history: Date/Time: 05/30/21 17:25 Narrative: This is a 66-year-old female with hypertension and obstructive sleep apnea who presented to the emergency department from urgent care for evaluation of hyperglycemia and suspected right leg cellulitis. About 2 months ago she developed small blisters on her lower legs and within the last month or so the blisters on her right leg have increased in size and are now open. The wound is shallow and she has been trying to take meticulous care of
--- NOTE | 2021-06-01 10:45 | PM.IMPN ---
Progress Note: A&P Assessment and Plan (1) Cellulitis of right leg: Code(s): L03.115 - Cellulitis of right lower limb Status: Acute Assessment and Plan: Presented from urgent care for evaluation of redness around a wound that has been present for a couple of months on her right lower leg. Cellulitis noted around wound Probably secondary to hyperglycemia Get arterial duplex, and Doppler Continue vancomycin and imipenem per antibiotic stewardship recommendations wound nurse consult for recommendations Wound culture if possible Blood cultures pending WBC slightly elevated at 10.6 today trend labs (2) Wound of right leg: Code(s): S81.801A - Unspecified open wound, right lower leg, initial encounter Status: Acute Assessment and Plan: MANISH and duplex does show decreased flow Unhealing Could be cellulitis contributing venous stasis also has a role Will garcía (3) New onset type 2 diabetes mellitus: Code(s): E11.9 - Type 2 diabetes mellitus without complications Status: Acute Assessment and Plan: New onset type 2 diabetes mellitus with hyperglycemia and a random glucose of 319 Glucose today is 178 Hemoglobin A1c is 11.1% Continue metformin and Jardiance Probably needs Lantus ISS, adjust as indicated 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 Trend glucose Adjust therapy as indicated (4) Hypertension: Code(s): I10 - Essential (primary) hypertension Status: Inactive Assessment and Plan: Blood pressure 153/68 Started on losartan and thiazide Continue to trend BP adjust therapy as indicated (5) Obstructive sleep apnea: Code(s): G47.33 - Obstructive sleep apnea (adult) (pediatric) Status: Acute Assessment and Plan: Apnea link ordered for tonight History of SONY (6) UTI (urinary tract infection): Code(s): N39.0 - Urinary tract infection, site not specified Status: Acute Assessment and Plan: Yellow cloudy urine 2+ protein, 3+ glucose, 1+ blood, 3+ leukocyte esterase, WBC 51-75, Bacteria trace On imipenem and vanco Urine culture grew staphylococcus aureus Tailor antibiotics to culture results (7) Nausea & vomiting: Code(s): R11.2 - Nausea with vomiting, unspecified Status: Acute Assessment and Plan: Has been nauseated and vomiting Zofran and pepcid on board KUB ordered BM reported this morning Could anxiety induced (8) Peripheral neuropathy: Code(s): G62.9 - Polyneuropathy, unspecified Status: Acute Assessment and Plan: Reports numbness and tingling Start gabapentin 100mg TID Trend symptoms Titrate as indicated Time Spent With Patient Time with patient: Greater than 35 minutes Subjective Date/time seen: 06/01/21 1045 Interval history: Date/Time: 05/30/21 17:25 Narrative: This is a 66-year-old female with hypertension and obstructive sleep apnea who presented to the emergency department from urgent care for evaluation of hyperglycemia and suspected right leg cellulitis. About 2 months ago she developed small blisters on her lower legs and within the last month or so the blisters on her right leg have increased in size and are now open. The wound is shallow and she has been trying to take meticulous care of it, applying triple antibiotic ointment and dry bandages frequently as apparently it has started to weep. The last couple of days she has developed redness around the wound with a burning discomfort. She went to urgent care today for evaluation and labs done at that time showed a glucose of well over 300 and she was sent to the ER. She has not seen a doctor for over 5 years and she has no known history of prediabetes or diabetes. With further questioning she does endorse and ongoing yeast infection for the last 6 months which has not improved with [id number] tr
[2021-06-01] MEDS: BETAMETHASONE/CLOTRIMAZOLE CR 15 GM TUBE 1 APPLIC TOPICAL ×2 (10:58→21:13)
[2021-06-01] MEDS: metFORMIN HCL 500 MG TABLET PO ×2 (10:58→18:02)
[2021-06-01] MEDS: EMPAGLIFLOZIN 10 MG TABLET PO (10:58)
[2021-06-01] MEDS: ENOXAPARIN 40 MG/0.4 ML SYRINGE SUB-Q (10:58)
[2021-06-01] MEDS: LOSARTAN POTASSIUM 25 MG TABLET PO (10:58)
[2021-06-01 10:59] LABS: Vancomycin Trough 13.9 ug/mL (10.0-20.0)
[2021-06-01] MEDS: FAMOTIDINE 20 MG TABLET PO ×2 (11:46→21:13)
[2021-06-01 12:04] LABS: Glucose Point of Care 175 mg/dl (65-105)
[2021-06-01 14:00] VITALS: BP 184/89; PULSE 96; RESP 18; TEMP 36.1; O2SAT 94
[2021-06-01] MEDS: GABAPENTIN 100 MG CAPSULE PO ×2 (15:42→21:13)
[2021-06-01] MEDS: FUROSEMIDE INJ 40 MG/4 ML VIAL IV PUSH (15:43)
[2021-06-01 16:58] LABS: Glucose Point of Care 208 mg/dl (65-105)
[2021-06-01] MEDS: INSULIN ASPART (*BKC) 100 UNITS/ML SUB-Q (18:03)
[2021-06-01 20:28] LABS: Glucose Point of Care 237 mg/dl (65-105)
[2021-06-01 22:00] VITALS: BP 129/68; PULSE 99; RESP 18; TEMP 35.7; O2SAT 99
[2021-06-02] MEDS: ONDANSETRON INJ 4 MG/2 ML VIAL IV PUSH ×2 (01:18→06:05)
[2021-06-02] MEDS: GABAPENTIN 100 MG CAPSULE PO ×3 (05:48→20:58)
[2021-06-02 06:00] VITALS: BP 130/70; PULSE 89; RESP 18; TEMP 35.7; O2SAT 97
[2021-06-02 06:07] LABS: Basophils Percent Auto 0.4 % (0.2-1.2); Eosinophils Absolute Auto 0.1 K/mm3 (0-0.3); Eosinophils Percent Auto 1.2 % (0-4.4); Hematocrit 39.4 % (37.0-47.0); Hemoglobin 13.2 g/dL (12.0-15.0); Immature Granulocyte Absolute 0.05 K/mm3 (0.00-0.031); Immature Granulocyte Percent A 0.4 % (0-0.5); Lymphocytes Absolute Auto 1.66 K/mm3 (0.9-3.2); Lymphocytes Percent Auto 14.5 % (18.3-44.2); Mean Corpuscular HGB Conc 33.5 g/dl (32-36); Mean Corpuscular Hemoglobin 30.8 pg (26-34); Mean Corpuscular Volume 92.1 fl (80-100); Mean Platelet Volume 11.4 fl (7.4-10.4); Monocytes Absolute Auto 0.9 K/mm3 (0.1-0.6); Monocytes Percent Auto 7.4 % (2.6-8.5); Neutrophils Absolute Auto 8.7 K/mm3 (1.3-6.7); Neutrophils Percent Auto 76.1 % (45.5-73.1); Platelet Count Result 162 k/mm3 (150-375); Red Blood Count 4.28 M/mm3 (4.2-5.4); Red Cell Distribution Width 13.5 % (11.5-14.5); White Blood Count 11.4 K/mm3 (4.5-10.0)
[2021-06-02 06:24] LABS: Alanine Aminotransferase 13 U/L (4-35); Albumin Level 3.5 g/dL (3.5-5.1); Alkaline Phosphatase 81 U/L (38-126); Anion Gap 7 mmol/L (8-16); Aspartate Amino Transferase 17 U/L (14-36); Bilirubin,Total 1.1 mg/dL (0.2-1.3); Blood Urea Nitrogen 15 mg/dL (7-17); Calcium 8.5 mg/dL (8.4-10.2); Carbon Dioxide 30 mmol/L (22-30); Chloride 98 mmol/L (98-107); Estimated CRCL calculation 91 ml/min; Estimated Glomerular Filt Rate > 60; Glucose 186 mg/dL (65-110); Magnesium 1.9 mg/dL (1.6-2.3); Potassium 3.7 mmol/L (3.4-5.0); Sodium 135 mmol/L (137-145)
[2021-06-02 08:22] LABS: Glucose Point of Care 186 mg/dl (65-105)
[2021-06-02] MEDS: metFORMIN HCL 500 MG TABLET PO ×2 (08:36→16:38)
[2021-06-02] MEDS: LOSARTAN POTASSIUM 25 MG TABLET PO (08:36)
[2021-06-02] MEDS: EMPAGLIFLOZIN 10 MG TABLET PO (08:37)
[2021-06-02] MEDS: FAMOTIDINE 20 MG TABLET PO ×2 (08:37→20:58)
[2021-06-02] MEDS: ENOXAPARIN 40 MG/0.4 ML SYRINGE SUB-Q (08:38)
[2021-06-02] MEDS: BETAMETHASONE/CLOTRIMAZOLE CR 15 GM TUBE 1 APPLIC TOPICAL ×2 (08:42→20:58)
[2021-06-02] MEDS: levoFLOXacin 750 MG TABLET PO (09:15)
--- NOTE | 2021-06-02 10:30 | P.PNIM_ITS ---
Progress Note: A&P Assessment and Plan (1) Cellulitis of right leg: Code(s): L03.115 - Cellulitis of right lower limb Status: Acute Assessment and Plan: * Presented from urgent care for evaluation of redness around a wound that has been present for a couple of months on her right lower leg. * Cellulitis noted around wound * Probably secondary to hyperglycemia * Get arterial duplex, and Doppler * Continue vancomycin and imipenem per antibiotic stewardship recommendations * Change antibiotics to Levaquin * wound nurse consult for recommendations * Wound culture if possible * Blood cultures pending * WBC slightly elevated at 10.6 today * trend labs (2) Wound of right leg: Code(s): S81.801A - Unspecified open wound, right lower leg, initial encounter Status: Acute Assessment and Plan: * MANISH and duplex does show decreased flow * Unhealing * Could be cellulitis contributing * venous stasis also has a role * Will garcía (3) New onset type 2 diabetes mellitus: Code(s): E11.9 - Type 2 diabetes mellitus without complications Status: Acute Assessment and Plan: * New onset type 2 diabetes mellitus with hyperglycemia and a random glucose of 319 * Glucose today is 186 * Hemoglobin A1c is 11.1% * Continue metformin and Jardiance * Probably needs Lantus * ISS, adjust as indicated * Diabetes and juvenile officer consult thank you * Trend glucose * Adjust therapy as indicated (4) Hypertension: Code(s): I10 - Essential (primary) hypertension Status: Inactive Assessment and Plan: * Blood pressure 144/73 * Started on losartan and thiazide * Continue to trend BP * adjust therapy as indicated (5) Obstructive sleep apnea: Code(s): G47.33 - Obstructive sleep apnea (adult) (pediatric) Status: Acute Assessment and Plan: * Apnea link ordered for tonight * History of SONY * Patient will need an outpatient sleep study (6) UTI (urinary tract infection): Code(s): N39.0 - Urinary tract infection, site not specified Status: Acute Assessment and Plan: * Yellow cloudy urine 2+ protein, 3+ glucose, 1+ blood, 3+ leukocyte esterase, WBC 51-75, Bacteria trace * On imipenem and vanco, switched to Levaquin * Urine culture grew staphylococcus aureus * Tailor antibiotics to culture results (7) Nausea & vomiting: Code(s): R11.2 - Nausea with vomiting, unspecified Status: Acute Assessment and Plan: * Has been nauseated and vomiting * Zofran and pepcid on board * KUB showed normal bowel gas pattern * BM reported this morning * Could anxiety induced (8) Peripheral neuropathy: Code(s): G62.9 - Polyneuropathy, unspecified Status: Acute Assessment and Plan: * Reports numbness and tingling * Start gabapentin 100mg TID * Trend symptoms * Titrate as indicated Time Spent With Patient Time with patient: Greater than 35 minutes Subjective Date/time seen: 06/02/21 1030 Interval history: Date/Time: 05/30/21 17:25 Narrative: This is a 66-year-old female with hypertension and obstructive sleep apnea who presented to the emergency department from urgent care for evaluation of hyperglycemia and suspected right leg cellulitis. About 2 months ago she developed small blisters on her lower legs and within the last month or so the bliste
--- NOTE | 2021-06-02 10:30 | PM.IMPN ---
Progress Note: A&P Assessment and Plan (1) Cellulitis of right leg: Code(s): L03.115 - Cellulitis of right lower limb Status: Acute Assessment and Plan: Presented from urgent care for evaluation of redness around a wound that has been present for a couple of months on her right lower leg. Cellulitis noted around wound Probably secondary to hyperglycemia Get arterial duplex, and Doppler Continue vancomycin and imipenem per antibiotic stewardship recommendations Change antibiotics to Levaquin wound nurse consult for recommendations Wound culture if possible Blood cultures pending WBC slightly elevated at 10.6 today trend labs (2) Wound of right leg: Code(s): S81.801A - Unspecified open wound, right lower leg, initial encounter Status: Acute Assessment and Plan: MANISH and duplex does show decreased flow Unhealing Could be cellulitis contributing venous stasis also has a role Will garcía (3) New onset type 2 diabetes mellitus: Code(s): E11.9 - Type 2 diabetes mellitus without complications Status: Acute Assessment and Plan: New onset type 2 diabetes mellitus with hyperglycemia and a random glucose of 319 Glucose today is 186 Hemoglobin A1c is 11.1% Continue metformin and Jardiance Probably needs Lantus ISS, adjust as indicated 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 Trend glucose Adjust therapy as indicated (4) Hypertension: Code(s): I10 - Essential (primary) hypertension Status: Inactive Assessment and Plan: Blood pressure 144/73 Started on losartan and thiazide Continue to trend BP adjust therapy as indicated (5) Obstructive sleep apnea: Code(s): G47.33 - Obstructive sleep apnea (adult) (pediatric) Status: Acute Assessment and Plan: Apnea link ordered for tonight History of SONY Patient will need an outpatient sleep study (6) UTI (urinary tract infection): Code(s): N39.0 - Urinary tract infection, site not specified Status: Acute Assessment and Plan: Yellow cloudy urine 2+ protein, 3+ glucose, 1+ blood, 3+ leukocyte esterase, WBC 51-75, Bacteria trace On imipenem and vanco, switched to Levaquin Urine culture grew staphylococcus aureus Tailor antibiotics to culture results (7) Nausea & vomiting: Code(s): R11.2 - Nausea with vomiting, unspecified Status: Acute Assessment and Plan: Has been nauseated and vomiting Zofran and pepcid on board KUB showed normal bowel gas pattern BM reported this morning Could anxiety induced (8) Peripheral neuropathy: Code(s): G62.9 - Polyneuropathy, unspecified Status: Acute Assessment and Plan: Reports numbness and tingling Start gabapentin 100mg TID Trend symptoms Titrate as indicated Time Spent With Patient Time with patient: Greater than 35 minutes Subjective Date/time seen: 06/02/21 1030 Interval history: Date/Time: 05/30/21 17:25 Narrative: This is a 66-year-old female with hypertension and obstructive sleep apnea who presented to the emergency department from urgent care for evaluation of hyperglycemia and suspected right leg cellulitis. About 2 months ago she developed small blisters on her lower legs and within the last month or so the blisters on her right leg have increased in size and are now open. The wound is shallow and she has been trying to take meticulous care of it, applying triple antibiotic ointment and dry bandages frequently as apparently it has started to weep. The last couple of days she has developed redness around the wound with a burning discomfort. She went to urgent care today for evaluation and labs done at that time showed a glucose of well over 300 and she was sent to the ER. She has not seen a doctor for over 5 years and she has no known history of prediabetes or diabetes. With further q
[2021-06-02] MEDS: FUROSEMIDE INJ 40 MG/4 ML VIAL IV PUSH (11:01)
[2021-06-02 11:35] LABS: Glucose Point of Care 168 mg/dl (65-105)
[2021-06-02 11:40] VITALS: O2SAT 95
[2021-06-02 14:00] VITALS: BP 144/73; PULSE 92; RESP 14; TEMP 36.2; O2SAT 96
--- NOTE | 2021-06-02 14:37 | PC.NURSE ---
On 06/02/21, the student, [Krystal Reese ], provided care and completed [facility] documentation on this patient. I have reviewed the student's documentation and agree with the findings.
[2021-06-02 16:26] LABS: Glucose Point of Care 149 mg/dl (65-105)
[2021-06-02 20:29] VITALS: O2SAT 99
[2021-06-02 21:03] LABS: Glucose Point of Care 158 mg/dl (65-105)
[2021-06-02 21:18] VITALS: BP 117/69; PULSE 88; RESP 16; TEMP 36.6; O2SAT 100
[2021-06-03 05:38] VITALS: BP 148/82; PULSE 92; RESP 18; TEMP 36.3; O2SAT 94
[2021-06-03 06:06] LABS: Basophils Percent Auto 0.4 % (0.2-1.2); Eosinophils Absolute Auto 0.1 K/mm3 (0-0.3); Hematocrit 43.6 % (37.0-47.0); Hemoglobin 13.8 g/dL (12.0-15.0); Immature Granulocyte Absolute 0.05 K/mm3 (0.00-0.031); Immature Granulocyte Percent A 0.5 % (0-0.5); Lymphocytes Absolute Auto 1.49 K/mm3 (0.9-3.2); Lymphocytes Percent Auto 15.5 % (18.3-44.2); Mean Corpuscular HGB Conc 31.7 g/dl (32-36); Mean Corpuscular Hemoglobin 30.1 pg (26-34); Mean Platelet Volume 11.2 fl (7.4-10.4); Monocytes Absolute Auto 0.7 K/mm3 (0.1-0.6); Monocytes Percent Auto 6.9 % (2.6-8.5); Neutrophils Absolute Auto 7.3 K/mm3 (1.3-6.7); Neutrophils Percent Auto 75.7 % (45.5-73.1); Platelet Count Result 181 k/mm3 (150-375); Red Blood Count 4.59 M/mm3 (4.2-5.4); Red Cell Distribution Width 13.8 % (11.5-14.5); White Blood Count 9.6 K/mm3 (4.5-10.0)
[2021-06-03] MEDS: GABAPENTIN 100 MG CAPSULE PO (06:26)
[2021-06-03 06:39] LABS: Alanine Aminotransferase 13 U/L (4-35); Albumin Level 3.8 g/dL (3.5-5.1); Alkaline Phosphatase 88 U/L (38-126); Anion Gap 7 mmol/L (8-16); Aspartate Amino Transferase 22 U/L (14-36); Bilirubin,Total 1.4 mg/dL (0.2-1.3); Blood Urea Nitrogen 18 mg/dL (7-17); Calcium 8.7 mg/dL (8.4-10.2); Carbon Dioxide 34 mmol/L (22-30); Chloride 96 mmol/L (98-107); Estimated CRCL calculation 79 ml/min; Estimated Glomerular Filt Rate > 60; Glucose 149 mg/dL (65-110); Potassium 3.8 mmol/L (3.4-5.0); Sodium 137 mmol/L (137-145)
[2021-06-03 07:53] LABS: Glucose Point of Care 142 mg/dl (65-105)
[2021-06-03 08:32] VITALS: O2SAT 98
[2021-06-03] MEDS: EMPAGLIFLOZIN 10 MG TABLET PO (10:03)
[2021-06-03] MEDS: metFORMIN HCL 500 MG TABLET PO (10:03)
[2021-06-03] MEDS: LOSARTAN POTASSIUM 25 MG TABLET PO (10:03)
[2021-06-03] MEDS: levoFLOXacin 750 MG TABLET PO (10:03)
[2021-06-03] MEDS: FAMOTIDINE 20 MG TABLET PO (10:03)
[2021-06-03] MEDS: ENOXAPARIN 40 MG/0.4 ML SYRINGE SUB-Q (10:04)
[2021-06-03] MEDS: BETAMETHASONE/CLOTRIMAZOLE CR 15 GM TUBE 1 APPLIC TOPICAL (10:04)
[2021-06-03 11:25] LABS: Glucose Point of Care 168 mg/dl (65-105)
--- NOTE | 2021-06-03 12:35 | P.DS_ITS ---
DS: Admitting Diagnosis Discharge Date 06/03/21 Admitting Diagnosis Cellulitis of the right leg Open wound to the right lower extremity Diabetes mellitus type 2, new onset Hypertension DS: Discharge Diagnosis Discharge Diagnosis (1) Cellulitis of right leg: Code(s): L03.115 - Cellulitis of right lower limb Status: Acute Assessment and Plan: * Presented from urgent care for evaluation of redness around a wound that has been present for a couple of months on her right lower leg. * Cellulitis noted around wound * Probably secondary to hyperglycemia * Get arterial duplex, and Doppler * Continue vancomycin and imipenem per antibiotic stewardship recommendations * Change antibiotics to Levaquin * wound nurse consult for recommendations * Wound culture if possible * Blood cultures pending * WBC slightly elevated at 10.6 today * trend labs (2) Wound of right leg: Code(s): S81.801A - Unspecified open wound, right lower leg, initial encounter Status: Acute Assessment and Plan: * MANISH and duplex does show decreased flow * Unhealing * Could be cellulitis contributing * venous stasis also has a role * Will garcía (3) New onset type 2 diabetes mellitus: Code(s): E11.9 - Type 2 diabetes mellitus without complications Status: Acute Assessment and Plan: * New onset type 2 diabetes mellitus with hyperglycemia and a random glucose of 319 * Glucose today is 186 * Hemoglobin A1c is 11.1% * Continue metformin and Jardiance * Probably needs Lantus * ISS, adjust as indicated * 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 * Trend glucose * Adjust therapy as indicated (4) Hypertension: Code(s): I10 - Essential (primary) hypertension Status: Inactive Assessment and Plan: * Blood pressure 144/73 * Started on losartan and thiazide * Continue to trend BP * adjust therapy as indicated (5) Obstructive sleep apnea: Code(s): G47.33 - Obstructive sleep apnea (adult) (pediatric) Status: Acute Assessment and Plan: * Apnea link ordered for tonight * History of SONY * Patient will need an outpatient sleep study (6) UTI (urinary tract infection): Code(s): N39.0 - Urinary tract infection, site not specified Status: Acute Assessment and Plan: * Yellow cloudy urine 2+ protein, 3+ glucose, 1+ blood, 3+ leukocyte esterase, WBC 51-75, Bacteria trace * On imipenem and vanco, switched to Levaquin * Urine culture grew staphylococcus aureus * Tailor antibiotics to culture results (7) Nausea & vomiting: Code(s): R11.2 - Nausea with vomiting, unspecified Status: Acute Assessment and Plan: * Has been nauseated and vomiting * Zofran and pepcid on board * KUB showed normal bowel gas pattern * BM reported this morning * Could anxiety induced (8) Peripheral neuropathy: Code(s): G62.9 - Polyneuropathy, unspecified Status: Acute Assessment and Plan: * Reports numbness and tingling * Start gabapentin 100mg TID * Trend symptoms * Titrate as indicated DS: Summary Hospital Course Reason for hospitalization: cellulitis Hospital Course: Patient is a 66-year-old female with past medical history of hypertension, SONY and obesity. She presented to the emergency department foot after being evaluated by the urgent care faci
--- NOTE | 2021-06-03 12:35 | PM.DS ---
DS: Admitting Diagnosis Discharge Date 06/03/21 Admitting Diagnosis Cellulitis of the right leg Open wound to the right lower extremity Diabetes mellitus type 2, new onset Hypertension DS: Discharge Diagnosis Discharge Diagnosis (1) Cellulitis of right leg: Code(s): L03.115 - Cellulitis of right lower limb Status: Acute Assessment and Plan: Presented from urgent care for evaluation of redness around a wound that has been present for a couple of months on her right lower leg. Cellulitis noted around wound Probably secondary to hyperglycemia Get arterial duplex, and Doppler Continue vancomycin and imipenem per antibiotic stewardship recommendations Change antibiotics to Levaquin wound nurse consult for recommendations Wound culture if possible Blood cultures pending WBC slightly elevated at 10.6 today trend labs (2) Wound of right leg: Code(s): S81.801A - Unspecified open wound, right lower leg, initial encounter Status: Acute Assessment and Plan: MANISH and duplex does show decreased flow Unhealing Could be cellulitis contributing venous stasis also has a role Will garcía (3) New onset type 2 diabetes mellitus: Code(s): E11.9 - Type 2 diabetes mellitus without complications Status: Acute Assessment and Plan: New onset type 2 diabetes mellitus with hyperglycemia and a random glucose of 319 Glucose today is 186 Hemoglobin A1c is 11.1% Continue metformin and Jardiance Probably needs Lantus ISS, adjust as indicated Diabetes and merchandising specialist consult thank you Trend glucose Adjust therapy as indicated (4) Hypertension: Code(s): I10 - Essential (primary) hypertension Status: Inactive Assessment and Plan: Blood pressure 144/73 Started on losartan and thiazide Continue to trend BP adjust therapy as indicated (5) Obstructive sleep apnea: Code(s): G47.33 - Obstructive sleep apnea (adult) (pediatric) Status: Acute Assessment and Plan: Apnea link ordered for tonight History of SONY Patient will need an outpatient sleep study (6) UTI (urinary tract infection): Code(s): N39.0 - Urinary tract infection, site not specified Status: Acute Assessment and Plan: Yellow cloudy urine 2+ protein, 3+ glucose, 1+ blood, 3+ leukocyte esterase, WBC 51-75, Bacteria trace On imipenem and vanco, switched to Levaquin Urine culture grew staphylococcus aureus Tailor antibiotics to culture results (7) Nausea & vomiting: Code(s): R11.2 - Nausea with vomiting, unspecified Status: Acute Assessment and Plan: Has been nauseated and vomiting Zofran and pepcid on board KUB showed normal bowel gas pattern BM reported this morning Could anxiety induced (8) Peripheral neuropathy: Code(s): G62.9 - Polyneuropathy, unspecified Status: Acute Assessment and Plan: Reports numbness and tingling Start gabapentin 100mg TID Trend symptoms Titrate as indicated DS: Summary Hospital Course Reason for hospitalization: cellulitis Hospital Course: Patient is a 66-year-old female with past medical history of hypertension, SONY and obesity. She presented to the emergency department foot after being evaluated by the urgent care facility. Patient was noted to be hyperglycemic and suspected to have right leg cellulitis. Maximum 2 months ago she developed small blisters on the lower legs and within the last month chemistries had opened and increase in size. Patient was placed in a Band-Aid over the site creating more skin irritation around the small blisters. The wound is shallow and skin appears to be sloughing patient has been applying triple antibiotic ointment and dry bandages frequently as apparently it started 2 weeks. The last couple of days prior to admission she developed redness around the wound withou
== END 2021-06-03 13:12 | disposition home or self-care (01) | DRG 638 ==
LOC: ANHED 17:25 → ANH3MEDSUR 05-31 06:23
PROVIDERS: Nurse Practitioner; Physician Assistant; Admitting Provider Internal Medicine; Emergency Provider Emergency Medicine; Visit Provider Nurse Practitioner Family
DX: E11.65 Type 2 diabetes mellitus with hyperglycemia (principal); L03.115 Cellulitis of right lower limb; Z68.41 Body mass index [BMI] 40.0-44.9, adult; N39.0 Urinary tract infection, site not specified; S81.801A Unspecified open wound, right lower leg, initial encounter; B95.61 Methicillin susceptible Staphylococcus aureus infection as the cause of diseases classified elsewhere; B37.9 Candidiasis, unspecified; R11.2 Nausea with vomiting, unspecified; I11.9 Hypertensive heart disease without heart failure; I87.8 Other specified disorders of veins; E11.42 Type 2 diabetes mellitus with diabetic polyneuropathy; E66.9 Obesity, unspecified; G47.33 Obstructive sleep apnea (adult) (pediatric); R60.0 Localized edema; Z91.19 Patient's noncompliance with other medical treatment and regimen; Z87.891 Personal history of nicotine dependence
CPT/HCPCS: 36415; 74018; 80053; 80202; 81001; 82948; 83036; 83605; 83690; 83735; 83880; 84443; 85025; 85027; 85055; 87040; 87077; 87086; 87088; 87186; 93005; 93922; 93925; 94762; 96365; 96375; 99215; 99285; A9270; C8929; G0463; J0696; J0743; J1650; J1815; J1940; J2405; J3370; J3475; J7030; Q9957

== ENCOUNTER 2021-11-28 07:22 | Outpatient (CLI) | payer MEDICARE, BC, SELFPAY ==
[2021-11-28 08:23] LABS: Hemoglobin A1C 7.2 % (<5.7)
[2021-11-28 08:44] LABS: MALB Creatinine Ratio 206.6 mg/g (0-30)
== END 2021-11-28 07:23 | disposition home or self-care (01) ==
LOC: ANHLAB 07:24
PROVIDERS: PCP Emergency Medicine; Visit Provider Emergency Medicine
DX: E11.9 Type 2 diabetes mellitus without complications (principal)
CPT/HCPCS: 36415; 82043; 83036

== ENCOUNTER 2021-12-14 08:49 | Outpatient (CLI) | payer MEDICARE, BC, SELFPAY ==
[2021-12-14 09:42] LABS: Creatinine Urine 22.6 mg/dL
[2021-12-14 09:47] LABS: MALB Creatinine Ratio 272.6 mg/g (0-30); Microalbumin Urine Random 61.6 mg/L (0-16.7)
== END 2021-12-14 08:50 | disposition home or self-care (01) ==
PROVIDERS: PCP Emergency Medicine; Visit Provider Emergency Medicine
DX: R80.9 Proteinuria, unspecified (principal)
CPT/HCPCS: 82043

== ENCOUNTER 2021-12-30 09:58 | Outpatient (CLI) | payer MEDICARE, BC, SELFPAY ==
--- NOTE | ~2021-12-30 | XR_ITS ---
EXAMINATION: XR chest 2V 12/30/2021 10:17 INDICATION: Cough for one week PROCEDURE: 2 view chest COMPARISON: Comparison to multiple prior studies sequentially, with oldest reviewed study dated 04/17. FINDINGS: The lungs are clear. The cardiomediastinal silhouette is within normal limits. There are no pleural effusions. There is no pneumothorax suspected. IMPRESSION: 1: NO ACUTE CARDIOPULMONARY DISEASE. Reviewed, dictated and finalized at location B.
== END 2021-12-30 09:59 | disposition home or self-care (01) ==
PROVIDERS: PCP Emergency Medicine; Visit Provider Emergency Medicine
DX: R05.9 Cough, unspecified (principal)
CPT/HCPCS: 71046

== ENCOUNTER 2022-03-16 08:49 | Outpatient (CLI) | payer MEDICARE, SELFPAY ==
--- NOTE | ~2022-03-16 | XR_ITS ---
EXAMINATION: XR chest 2V DATE: 03/16/2022 09:23 INDICATION: Left chest pain, cough TECHNIQUE: PA and lateral views of the chest are obtained. COMPARISON: 12/22/2021 FINDINGS: The lungs are free of acute opacities. No pleural effusion or pneumothorax. The cardiomedia stinal silhouette is normal. There is mild thoracic spondylosis. IMPRESSION: 1. No acute cardiopulmonary abnormality. Reviewed, dictated and finalized at location L. LAUNDERER
== END 2022-03-16 08:50 | disposition home or self-care (01) ==
PROVIDERS: PCP Emergency Medicine; Visit Provider Emergency Medicine
DX: M25.512 Pain in left shoulder (principal)
CPT/HCPCS: 71046

== ENCOUNTER 2022-06-28 08:08 | Outpatient (CLI) | payer MEDICARE, SELFPAY ==
--- NOTE | ~2022-06-28 | CT_ITS ---
EXAMINATION:CT lung screening DATE: 06/28/2022 10:24 INDICATION: Tobacco use. Smoker who quit 10 years ago with 20 pack year history. TECHNIQUE: Computed tomography (CT) of the chest was performed without intravenous contrast. Automate d exposure control and iterative reconstruction technique were employed. The dose-length product (DLP ) was 262.79 mGy-cm. COMPARISON: Chest CT 04/08/2007 FINDINGS: Calcified bilateral lung nodules and calcified left hilar lymph nodes are consistent with o ld granulomatous disease. No pleural effusion. The heart size is normal. There are coronary artery ca lcifications. No pericardial effusion. Calcifications in the spleen are consistent with old granuloma tous disease. There is mild thoracic spondylosis. IMPRESSION: 1. Lung-RADS category 1: Negative. Continue annual screening with noncontrast low-dose chest CT in 12 months. Reviewed, dictated and finalized at location A. IMPRESSION: 1. Lung-RADS category 1: Negative. Continue annual screening with noncontrast l ow-dose chest CT in 12 months.
[2022-06-28 08:00] VITALS: PULSE 70; O2SAT 93
[2022-06-28 08:05] VITALS: PULSE 92; O2SAT 87
[2022-06-28 08:10] VITALS: PULSE 91; O2SAT 88
[2022-06-28 08:15] VITALS: PULSE 94; O2SAT 91
[2022-06-28 08:30] VITALS: PULSE 72; O2SAT 94
--- NOTE | 2022-06-28 08:48 | HOMEO2EVAL ---
Evaluation was performed at [facility] Home Oxygen Evaluation RC: Home Oxygen (O2) Evaluation Start: 06/28/22 08:39 Freq: Status: Active Protocol: RPE Activity Type Activity Date Activity User E-sign Co-sign Detail Recorded Client Recorded Date Recorded By Document 06/28/22 08:00 [email or web address] [email or web address] 06/28/22 08:48 DJO Document 06/28/22 08:05 [email or web address] [email or web address] 06/28/22 08:48 DJO Document 06/28/22 08:10 [email or web address] [email or web address] 06/28/22 08:48 DJO Document 06/28/22 08:15 [email or web address] [email or web address] 06/28/22 08:48 DJO Document 06/28/22 08:30 [email or web address] [email or web address] 06/28/22 08:48 DJO 06/28/22 06/28/22 06/28/22 08:00 08:05 08:10 Home O2 Evaluation [Oxygen] -Test Phase Resting Exercise Exercise -Oxygen Delivery Room Air Room Air Nasal Cannula -Oxygen Flow Rate (L/min) 1 [Pulse Oximetry] -Pulse Oximetry (90-100 %) 93 87 L 88 L [Pulse Rate] -Pulse Rate (60-100 beats/min) 70 92 91 [Evaluation] -Activity Tolerance [Exercise] -Ambulation Distance (feet) -Ambulation Distance (meters) [Charges] -Treatment Charges O2 Evaluation - Outpatient 06/28/22 06/28/22 08:15 08:30 Home O2 Evaluation [Oxygen] -Test Phase Exercise Resting -Oxygen Delivery Nasal Cannula Room Air -Oxygen Flow Rate (L/min) 2 [Pulse Oximetry] -Pulse Oximetry (90-100 %) 91 94 [Pulse Rate] -Pulse Rate (60-100 beats/min) 94 72 [Evaluation] -Activity Tolerance Fair [Exercise] -Ambulation Distance (feet) 500 -Ambulation Distance (meters) 152.39 [Charges] -Treatment Charges
--- NOTE | 2022-06-28 12:55 | WPDPFTINT ---
PFT Procedure Performed PFT Procedure Performed Spirometry with Pre/Post Bronchodilator Plethysmography (Lung Vol) Diffusing Cap (DLCO) Flow Vol Loop PFT Interpretation This is a pulmonary function test with pre and post-bronchodilator spirometry, plethysmography and diffusing capacity. The test was performed and results interpreted in accordance with the 2019 and 2005 ATS/ERS Task Force guidelines respectively using the Global Lung Function Initiative-2012 reference equations. Patient demonstrated good effort and cooperation. Reproducibility criteria were met. The quality of the pre bronchodilator spirometry maneuver was Grade A and post bronchodilator spirometry maneuver was Grade A. Findings: Spirometry: There is decreased maximal expiratory airflow at all lung volumes with concave expiratory flow tracing. Contour the inspiratory flow tracing is normal. The pre bronchodilator FVC is 1.46 L, 52% predicted. The pre bronchodilator FEV1 is 0.65 L, 29% predicted. The pre bronchodilator FEV1: FVC ratio was 44%. The post bronchodilator FVC is 1.29 L, representing a 12% decrease. The post bronchodilator FEV1 is 0.62 L, representing a 4% decrease. The post bronchodilator FEV1: FVC ratio is 48%. Plethysmography: The total lung capacity is 6.83 L, 139% predicted. The functional residual capacity is 5.90 L, 212% predicted. The residual volume is 4.80 L, 229% predicted. Diffusing capacity: The diffusing capacity unadjusted for hemoglobin and carboxyhemoglobin is 9.5, 47% predicted. The diffusing capacity adjusted for alveolar volume is 5.29, 121% predicted. Impression: There is a very severe obstructive abnormality without significant improvement after inhaling a single dose of albuterol. The increase in residual volume is consistent with air trapping from an obstructive abnormality. Hyperinflation is present as demonstrated by the increase in functional residual capacity and total lung capacity and is consistent with an obstructive abnormality. The diffusing capacity unadjusted for hemoglobin and carboxyhemoglobin is moderately decreased and normalizes when adjusted for alveolar volume. There are no prior studies for comparison
== END 2022-06-28 08:09 | disposition home or self-care (01) ==
LOC: ANHPFT 08:09
PROVIDERS: PCP Emergency Medicine; Visit Provider Nurse Practitioner Family
DX: Z12.2 Encounter for screening for malignant neoplasm of respiratory organs (principal); R94.2 Abnormal results of pulmonary function studies; Z87.891 Personal history of nicotine dependence
CPT/HCPCS: 36415; 71271; 80053; 80061; 82043; 82306; 82607; 82728; 83036; 83540; 83550; 83695; 83880; 84439; 84443; 84480; 86140; 94060; 94618; 94726; 94729

== ENCOUNTER 2022-06-28 09:18 | Outpatient (CLI) | payer MEDICARE, SELFPAY ==
[2022-06-28 10:24] LABS: Alanine Aminotransferase 15 U/L (6-35); Albumin Level 4.2 g/dL (3.5-5.1); Alkaline Phosphatase 82 U/L (38-126); Anion Gap 5 mmol/L (8-16); Aspartate Amino Transferase 14 U/L (14-36); Bilirubin,Total 0.9 mg/dL (0.2-1.3); Blood Urea Nitrogen 22 mg/dL (7-17); Calcium 9.2 mg/dL (8.4-10.2); Carbon Dioxide 33 mmol/L (22-30); Chloride 100 mmol/L (98-107); Cholesterol 161 mg/dL (0-200); Estimated Glomerular Filt Rate > 60; Glucose 114 mg/dL (65-110); HDL Direct 39 mg/dL; Potassium 4.1 mmol/L (3.4-5.0); Sodium 138 mmol/L (137-145); Triglycerides 110 mg/dL (<150)
[2022-06-28 10:27] LABS: Hemoglobin A1C 6.6 % (<5.7)
[2022-06-28 10:30] LABS: Iron 31 ug/dL (37-170)
[2022-06-28 10:39] LABS: Percent Iron Saturation 8 % (20-50)
[2022-06-28 10:40] LABS: NT Pro B Type Natriuretic Pept 401 pg/mL (19.9-100)
[2022-06-28 10:41] LABS: Creatinine Urine 65.3 mg/dL
[2022-06-28 10:43] LABS: MALB Creatinine Ratio 93.3 mg/g (0-30); Microalbumin Urine Random 60.9 mg/L (0-16.7)
[2022-06-28 10:46] LABS: LDL Cholesterol Direct 91 mg/dL
[2022-06-28 10:53] LABS: Free T4 Free Thyroxine 1.45 ng/mL (0.78-2.19); Vitamin D 25 Hydroxy 15.4 ng/mL
[2022-06-28 11:53] LABS: Total Triiodothyronine (T3) 0.99 NG/ML (0.97-1.69)
[2022-07-04 08:31] LABS: Lipoprotein A 42 nmol/L (<75)
== END 2022-06-28 09:19 | disposition home or self-care (01) ==
PROVIDERS: PCP Emergency Medicine; Visit Provider Internal Medicine Cardiovascular Disease
DX: R06.02 Shortness of breath (principal); R07.9 Chest pain, unspecified; L97.919 Non-pressure chronic ulcer of unspecified part of right lower leg with unspecified severity; I10 Essential (primary) hypertension; I51.7 Cardiomegaly; G47.30 Sleep apnea, unspecified; E11.9 Type 2 diabetes mellitus without complications; Z13.6 Encounter for screening for cardiovascular disorders
CPT/HCPCS: 36415; 80053; 80061; 82043; 82306; 82607; 82728; 83036; 83540; 83550; 83695; 83880; 84439; 84443; 84480; 86140

== ENCOUNTER 2022-07-26 08:27 | Outpatient (CLI) | payer MEDICARE, SELFPAY ==
--- NOTE | 2022-08-03 17:06 | WPDSLEEPSTUD ---
Sleep Study Date of Study: 07/26/22 Ordering Provider: Jonny Morales APRN Interpreting Physician: Alla Prince MD Sleep Study Type: Split Polysomnogram Height: 1.6 m Weight: 97.522 kg Body Mass Index: 38.0 Neck Circumference (inches): 15 [place]: 9 Reason for Sleep Study Patient was diagnosed with sleep apnea in 2005. Needed a new study to get new equipment. * CPAP titration 09/06/2005 that showed titration to CPAP 16 cm of water.? PLMD noted. BMI 46.9 * PSG 08/01/2005 demonstrated moderate obstructive sleep apnea with an AHI of 18.7 associated with heavy snoring and severe myoclonus with recommendation for CPAP titration. Sleep History Nelli Beebe is a 67-year-old female with history of obstructive sleep apnea who needed a sleep study to get new PAP equipment. Her prior titration in 2005 showed that she needed 16 cm of water pressure. Her BMI at that time was 46, now 38. She constantly awakens from sleep short of breath. She frequently awakens at night with heartburn, belching or cough.??She occasionally snores. She occasionally snores loudly enough that others complain. She frequently has trouble sleeping when she has a cold. She constantly suddenly wakes up gasping for breath during the night. She constantly has breathing problems at night. She occasionally sweats excessively at night. She occasionally notices her heart pounding or beating irregularly during the night. She occasions falls asleep during the day. She never falls asleep while driving. She never experiences loss of muscle tone with strong emotion. She occasionally feels paralyzed on waking or falling asleep. She never experiences vivid dreams upon waking or falling asleep. She frequently feels afraid of going to sleep. She rarely has nightmares. She occasionally recalls her dreams. She occasionally has thoughts racing through her mind. She rarely feels sad or depressed. She occasionally feels anxiety or worry about things. She occasionally notices parts of her body jerk. She occasionally kicks during the night. She occasionally feels crawling or aching feelings in her legs. She occasionally feels leg pain at night. She rarely grinds her teeth or has morning jaw pain. She occasionally feels bothered by pain during the day and awakened by pain during the night. She occasionally wakes up feeling stiff, sore, and achy in the morning with pain in her neck, spine, or joints. ? Normal bedtime is around 1am on the weekdays and same on the weekends, taking about 30 minutes to fall asleep. She typically gets about 4 hours of sleep per night. Her wake up time is between 5 to 6am on the weekdays and same on the weekends. She typically wakes up around three times per night, awake 1 to 2 hours and she will go sometimes get up, go to her chair and may doze off in chair. She watches television before falling asleep. She takes naps in the afternoon or evenings and feels refreshed after a 10-15 minute nap. 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 Habits:??Former smoker. She drinks 2 caffeinated beverages per day. No alcohol or recreational substances. [facility] Past Medical History Medical History Diabetes Hypertension Obstructive sleep apnea Surgical History Surgical History History of laparoscopy With destruction of ovarian cyst. Family History Family History Other Diabetes mellitus Hypertension Social History Social History Social History: Surrogate decision maker: Stas Beebe, spouse. Code status: Full code. Smoking packs per day: 1 Smoking cigarettes per day: 20.0 Years smoked: 20 Smoking pack-years: 20.00 Smoking status: Former smoker Tobacco type: cigarettes Second hand tobacco smoke exposure: No Smoking end date: 03/05/12 Alcohol intak
[2022-08-07 10:13] VITALS: BMI 38.0
== END 2022-07-27 07:18 | disposition home or self-care (01) ==
LOC: ANHCSM 08:28
PROVIDERS: PCP Emergency Medicine; Visit Provider Nurse Practitioner Family
DX: G47.33 Obstructive sleep apnea (adult) (pediatric) (principal); E11.9 Type 2 diabetes mellitus without complications; I10 Essential (primary) hypertension; Z87.891 Personal history of nicotine dependence
CPT/HCPCS: 95811

== ENCOUNTER 2023-01-18 12:35 | Outpatient (CLI) | payer MEDICARE, SELFPAY ==
[2023-01-18 13:00] VITALS: PULSE 76; O2SAT 99
[2023-01-18 13:05] VITALS: PULSE 109; O2SAT 98
[2023-01-18 13:15] VITALS: PULSE 79; O2SAT 98
[2023-01-18 13:52] LABS: Hematocrit 39.4 % (37.0-47.0); Hemoglobin 12.2 g/dL (12.0-15.0); Mean Corpuscular Hemoglobin 29.3 pg (26-34); Mean Corpuscular Volume 94.7 fl (80-100); Mean Platelet Volume 11.4 fl (7.4-10.4); Platelet Count Result 171 k/mm3 (150-375); Red Blood Count 4.16 M/mm3 (4.2-5.4); Red Cell Distribution Width 15.2 % (11.5-14.5); White Blood Count 9.3 K/mm3 (4.5-10.0)
--- NOTE | 2023-01-18 14:30 | HOMEO2EVAL ---
Evaluation was performed at [facility] Home Oxygen Evaluation RC: Home Oxygen (O2) Evaluation Start: 01/18/23 14:28 Freq: Status: Active Protocol: RPE Activity Type Activity Date Activity User E-sign Co-sign Detail Recorded Client Recorded Date Recorded By Document 01/18/23 13:00 MICHAELA [email or web address] 01/18/23 14:30 MICHAELA Document 01/18/23 13:05 MICHAELA [email or web address] 01/18/23 14:30 MICHAELA Document 01/18/23 13:15 MICHAELA [email or web address] 01/18/23 14:30 MICHAELA 01/18/23 01/18/23 01/18/23 13:00 13:05 13:15 Home O2 Evaluation [Oxygen] -Test Phase Resting Exercise Resting -Oxygen Delivery Room Air Room Air Room Air [Pulse Oximetry] -Pulse Oximetry (90-100 %) 99 98 98 [Pulse Rate] -Pulse Rate (60-100 beats/min) 76 109 H 79 [Evaluation] -Activity Tolerance Excellent [Exercise] -Ambulation Distance (feet) 800 -Ambulation Distance (meters) 243.82 [Comments] -Home Oxygen Evaluation Comments No home O2 needed with rest or exertion [Charges] -Treatment Charges O2 Evaluation - Outpatient
--- NOTE | 2023-01-18 14:32 | PCRCNOTE ---
Home o2 eval faxed to office staff, pt does not need home O2 with rest or exertion
[2023-01-18 15:09] LABS: Creatinine Urine 41.5 mg/dL
[2023-01-18 15:13] LABS: MALB Creatinine Ratio 180.5 mg/g (0-30); Microalbumin Urine Random 74.9 mg/L (0-16.7)
[2023-01-18 15:32] LABS: Hemoglobin A1C 6.5 % (<5.7)
[2023-01-18 15:40] LABS: Iron 52 ug/dL (37-170)
[2023-01-18 15:50] LABS: Percent Iron Saturation 15 % (20-50)
[2023-01-18 15:58] LABS: Vitamin D 25 Hydroxy 22.5 ng/mL
== END 2023-01-18 12:36 | disposition home or self-care (01) ==
PROVIDERS: PCP Emergency Medicine; Referring Provider Emergency Medicine; Visit Provider Nurse Practitioner Family
DX: D64.9 Anemia, unspecified (principal); E55.9 Vitamin D deficiency, unspecified; E11.9 Type 2 diabetes mellitus without complications; I10 Essential (primary) hypertension
CPT/HCPCS: 36415; 82043; 82306; 83036; 83540; 83550; 85027; 94618

== ENCOUNTER 2023-07-02 10:25 | Outpatient (CLI) | payer MEDICARE, SELFPAY ==
--- NOTE | ~2023-07-02 | CT_ITS ---
CT Scan of the Chest without Contrast: Clinical Indication: Lung cancer screening, nicotine dependence Technique: Contiguous sections were acquired throughout the chest without intravenous contrast. Dose reduction technique was used on this scan by utilizing automated exposure control and iterative recon struction technique. The dose-length product (DLP) was 166.42 mGy-cm. COMPARISON: 06/28/2022 Findings: There is no evidence of any significant mediastinal, hilar or axillary lymphadenopathy. There are ath erosclerotic calcifications of the aorta and coronary arteries. There is no evidence of pleural or pericardial effusion. The lungs are clear. No pulmonary nodules or infiltrates are noted. Images through the upper abdomen reveal stable probable bilateral adrenal nodules. Impression: Lung RADS 1: Negative. 12 month follow-up screening CT advised. Reviewed, dictated and finalized at [facility]. Impression: Lung RADS 1: Negative. 12 month follow-up screening CT advised.
== END 2023-07-02 10:26 | disposition home or self-care (01) ==
PROVIDERS: PCP Emergency Medicine; Visit Provider Nurse Practitioner Family
DX: Z12.2 Encounter for screening for malignant neoplasm of respiratory organs (principal); Z87.891 Personal history of nicotine dependence
CPT/HCPCS: 71271

== ENCOUNTER 2024-02-25 11:46 | Outpatient (RCR) | payer MEDICARE, SELFPAY ==
[2024-02-25 12:52] VITALS: BMI 42.2
--- NOTE | 2024-03-07 07:41 | PCWOUND ---
WOCN NOTE Patient called to cancel her appointment for 03-10-24. States her wound is fine, She will call in the future if another appointment is needed.
== END 2024-05-09 13:46 | disposition home or self-care (01) ==
LOC: ANHWOC 11:46
PROVIDERS: PCP Emergency Medicine; Visit Provider Podiatrist Foot & Ankle Surgery
DX: L97.922 Non-pressure chronic ulcer of unspecified part of left lower leg with fat layer exposed (principal); L97.912 Non-pressure chronic ulcer of unspecified part of right lower leg with fat layer exposed
CPT/HCPCS: 99213; A9270; G0463

== ENCOUNTER 2024-07-02 09:39 | Outpatient (CLI) | payer MEDICARE, SELFPAY ==
--- NOTE | ~2024-07-02 | CT_ITS ---
CT Scan of the Chest without Contrast: Clinical Indication: Lung cancer screening, nicotine dependence Technique: Contiguous sections were acquired throughout the chest without intravenous contrast. Dose reduction technique was used on this scan by utilizing automated exposure control and iterative recon struction technique. The dose-length product (DLP) was 202.40 mGy-cm. COMPARISON: 07/02/2023 Findings: There is no evidence of any significant mediastinal, hilar or axillary lymphadenopathy. There are ext ensive atherosclerotic calcifications of the aorta and coronary arteries. There is no evidence of pleural or pericardial effusion. The lungs are clear, aside from calcified left basilar granuloma. Images through the upper abdomen reveal no abnormalities. Impression: Lung RADS 1: Negative. 12 month follow-up screening CT advised. Reviewed, dictated and finalized at location . Impression: Lung RADS 1: Negative. 12 month follow-up screening CT advised.
--- OUTSIDE RECORDS SUMMARY | 2024-07-02 10:27 | XMS_ITS | Clinical Summary ---
Author Organization [facility] Address [address] [place] [id number] Care Team Providers Care Test Design Engineer Name Role Phone Deangelo Huynh MD Primary Care Provider [phone] Medications gentamicin (GARAMYCIN) 0.1 % cream Apply topically daily. 30 g 2 Active Social History Tobacco Use Types Packs/Day Years Used Date Smoking Tobacco: Never Assessed Comments Unknown Sex and Gender Information Value Date Recorded Sex Assigned at Not on file Legal Sex Female 8:20 AM [employer]ENDER [employer] Gender Identity Not on file Sexual Orientation Not on file Plan of Treatment Health Maintenance Due Date Last Done Comments Colorectal Cancer Screening Colonoscopy (10 Years) 1954 Hepatitis C 01/17/1972 DTaP, Tdap and Td Vaccines ( 1 - Tdap) 1973 Mammogram Screening 1994 Pneumococcal Vaccine: 50+ Years (1 of 1 - PCV) 01/17/2004 Zoster Vaccines (1 of 2) 01/17/2004 Annual Medicare Wellness Visit 2019 Dexa Scan (General) 2019 COVID-19 Vaccine (3 - 2023-2 5 season) 2023 03/16/2022, 08/12/2020 RSV Immunization or 60+ Years (1 - 1-dose 75+ series) 2029 Meningococcal B Vaccine Aged Out No l onger eligible based on patient's age to complete this topic Meningococcal Vaccine Aged Out No hema murtaza eligible based on patient's age to complete this topic RSV Immunizations Under 20 Months Aged Out No longer eligible b ased on patient's age to complete this topic Insurance [facility] Care Teams Test Design Engineer Relationship Specialty Start Date End Date Deangelo Huynh MD [address] [place] [id number] PCP - General FAMILY PRACTICE 04/27/22
--- OUTSIDE RECORDS SUMMARY | 2024-07-02 10:27 | XMS_ITS | CONTINUITY OF CARE DOCUMENT ---
Author Name amparo christensen Address Unknown Organization [facility] Address [address] [place] [address] Phone [phone] Care Team Providers Care Patternmaker Name Role Phone Tato Cruz MD Unavailable BORIS TAO MD Unavailable [phone] BORIS TAO MD Unavailable [phone] PROBLEMS Condition Status Date Provider Notes CKD active Tato Cruz MD neg efgr with abnld uacr Screening active Tato Cruz MD Hyperlipidemia;NEG CRP and lpa active Tato Cruz MD PVD; active Tato Cruz MD Venous insufficiency active Tato Bhatia Diabetes mellitus, type 2 active Tato espinoza MD neg egfr PROTEINURIA;neg efgr active Tato Bhatia on kereidn sglth and shannan Diastolic CHF AND LVH active Tato Cruz MD Hypertension active Tato Cruz MD Sleep apnea active Tato Cruz MD Leg ulcer, right active Tato Cruz MD Chest pain active Tato Cruz MD ENCOUNTERS Date Type Provider Location Encounter Diag nosis - In-person encounter Office Visit Tato Cruz MD [facility] HypertensionSleep apneaLeg ulcer, rightChest pain VITAL SIGNS Date Observation Value Provider Body Mass Index (Ratio) 38.08 kg/m2 Gisella Cruz MD blood pressure, diastolic 102 mm[Hg] Li nkLogic blood pressure, systolic 183 mm[Hg] Araseli kLogic respiratory rate E&M 15 /min lEi li blood pressure, diastolic 102 mm[Hg] Ene anaya Doc blood pressure, systolic 183 mm[Hg] Any sahra Roach height E&M 63 [in_i] Elisahra Roach oxygen saturation, oximetry 90 % Eli Roach pulse rate 96 /min Eli Roach blood pressure, cuff size large An jaclyn Doc weight E&M 215 [lb_av] Eli Roach HISTORY OF MEDICATION USE Medication Status Instructions Dates Provider Indications Com ments carvedilol 12.5 mg tablet active Take 1 tablet by mouth twice a day 05/27 Diandra Nickerson carvedilol 12.5 mg tablet completed TAKE 1 TABLET BY MOUTH TWICE DAILY 11/19 - 05/27 Diandra Gruenemalik carvedilol 12.5 mg tablet completed Take 1 tablet by mouth twice a day - 11/19 Ag Desouza carvedilol 12.5 mg tablet completed TAKE 1 TABLET BY MOUTH TWICE DAILY 10/05 - Diandra Nickerson Coreg 12.5 mg tablet completed Take 1 tabl et by mouth twice a day 06/08 - 10/05 eNlli Pavon Kerendia 20 mg tablet active Take 1 tab let by mouth once a day 06/08 Diandra Nickerson albuterol sulfate 90 mcg/actuation HFA aerosol inhaler active INHALE 2 PUFFS BY MOUTH EVERY 6 HOURS NEEDED Ellie Rizo NP Jardiance 10 mg tablet active Eli Roach hydrochlorothiazide 12.5 mg tablet active Eli Roach losartan 100 mg tablet active Eli Roach metformin 500 mg tablet active Eli Roach SOCIAL HISTORY Date Observation Value Provider quit smoking, stage quit Ellie rachel NP social history reviewed E&M revi ewed - no changes required Ellie Rizo JAVA MOBILE DEVELOPER social history E&M S moking History: Florentin hubbard is a former smoker. Ellie Rizo JAVA MOBILE DEVELOPER smoking, year quit 2018 Eli Will iams cigarette use yes Eli Doc smoking status Former smoker Elisahra Rivera s INSURANCE PROVIDERS Payer name Policy type / Coverage type [place] [employer] party ID A[employer] MEDICARE ADVANTAGE ([facility] COMPLETE PPO) Other [id number] ADVANCE DIRECTIVES Name Date DISCUSSED - NO DECISION MADE TREATMENT PLAN Date Name Performer [id number],C,95 Tato espinoza MD [id number],C,nml b12 and t sh Tato Cruz MD [id number],C,401 Tato colorado MD [id number],C,bad by sensis el Tato Cruz MD [id number],C,N oted on previos labs. Will recheck labs. Will start Kerendia. Ellie Rizo MINA [id number],C,Floerntin hubbard has been symptomatic off and on for the last few weeks. EKG in office today showd NSR. Will order stress test and labs. Her updated medication list for this problem includes: Coreg 12.5 Mg Tablet (Carvedilol) ..... Take 1 tablet by mouth twice a day Ellie Rizo MINA [id number],C, Patient has been symptomatic since Feb 2022. She can barely walk a block before she becomes short of breath and she is unable to walk up a flight of stairs. Will order Echo/Stress test Her updated medication list for this problem includes: Coreg 12.5 Mg Tablet (Carvedilol) ..... Take 1 tablet by mouth twice a day Hydrochlorothiazide 12.5 Mg Tablet (Hydrochlorothiazide) Losartan 100 Mg Tablet (Losartan) Ellie Silvasara ENRIQUEZ [id number],C,P atient follows with wound care clinic. Will order venous and arterial studies. Ellie Rizo JAVA MOBILE DEVELOPER [id number],C,S he wears compression stockings daily. Will oorder venous and arterial studies. Ellie Rizo JAVA MOBILE DEVELOPER [id number],C,S he has an upcoming appointment with pulmonary to schedule sleep study. Ellie Rizo JAVA MOBILE DEVELOPER [id number],C,E levated in office. She states that her BP at home s generally in the 120s/80s Will order RPM. Her updated medication list for this problem includes: Coreg 12.5 Mg Tablet (Carvedilol) ..... Take 1 tablet by mouth twice a day Hydrochlorothiazide 12.5 Mg Tablet (Hydrochlorothiazide) Losartan 100 Mg Tablet (Losartan) BP today: 183/102 Ellie Rizo MINA [id number],C,N oted per previous echo. 05/2021 W ill repeat echo. Ellie Rizo MINA [id number],C, H er updated medication list for this problem includes: Coreg 12.5 Mg Tablet (Carvedilol) ..... Take 1 tablet by mouth twice a day Hydrochlorothiazide 12.5 Mg Tablet (Hydrochlorothiazide) Losartan 100 Mg Tablet (Losartan) Ellie Rizo MINA [id number],C,L ast A1c was 7.2%. Managed per PCP. Her updated medication list for this problem includes: Jardiance 10 Mg Tablet (Empagliflozin) Losartan 100 Mg Tablet (Losartan) Metformin 500 Mg Tablet (Metformin) Ellie Fajardolinda ENRIQUEZ [id number],C,548 Tato colorado MD [id number],C,11.1 Tato mehta MD :95 Tato Cruz MD :nml b12 and tsh Tato Bhatia :401 Tato Cruz MD :bad by primitivo Bhatia Cardiology:Noted on previos labs. Will recheck labs. Will start Kerendia. Ellie Rizo NP Cardiology:Patient tasia as been symptomatic off and on for the last few weeks. EKG in office today showd NSR. Will order stress test and labs. Her updated medication list for this problem includes: Coreg 12.5 Mg Tablet (Carvedilol) ..... Take 1 tablet by mouth twice a day Ellie Rizo NP Cardiology: Patient has been symptomatic since Feb 2022. She can barely walk a block before she becomes short of breath and she is unable to walk up a flight of stairs. Will order Echo/Stress test Her updated medication list for this problem includes: Coreg 12.5 Mg Tablet (Carvedilol) ..... Take 1 tablet by mouth twice a day Hydrochlorothiazide 12.5 Mg Tablet (Hydrochlorothiazide) Losartan 100 Mg Tablet (Losartan) Ellie Rizo NP Cardiology:Patient f maddy with wound care clinic. Will order venous and arterial studies. Ellie Rizo NP Cardiology:She wears compression stockings daily. Will oorder venous and arterial studies. Ellie Rizo NP Cardiology:She has a n upcoming appointment with pulmonary to schedule sleep study. Ellie Rizo NP Cardiology:Elevated in office. She states that her BP at home s generally in the 120s/80s Will order RPM. Her updated medication list for this problem includes: Coreg 12.5 Mg Tablet (Carvedilol) ..... Take 1 tablet by mouth twice a day Hydrochlorothiazide 12.5 Mg Tablet (Hydrochlorothiazide) Losartan 100 Mg Tablet (Losartan) BP today: 183/102 Ellie Rizo NP Cardiology:Noted per previous echo. 05/2021 W ill repeat echo. Ellie Rizo NP Cardiology: H er updated medication list for this problem includes: Coreg 12.5 Mg Tablet (Carvedilol) ..... Take 1 tablet by mouth twice a day Hydrochlorothiazide 12.5 Mg Tablet (Hydrochlorothiazide) Losartan 100 Mg Tablet (Losartan) Ellie Rizo JAVA MOBILE DEVELOPER Cardiology:Last A1c was 7.2%. Managed per PCP. Her updated medication list for this problem includes: Jardiance 10 Mg Tablet (Empagliflozin) Losartan 100 Mg Tablet (Losartan) Metformin 500 Mg Tablet (Metformin) Ellie Rizo JAVA MOBILE DEVELOPER clindked revewi:548 Tato bocanegra MD clindked revewi:11.1 Tato syed MD Date Name Microalb/Creatinine Urine, Random Venous Doppler Bilat eral LE - Reflux Arterial - SENSILASE Arterial Duplex Bi-L ower EX RPM (remote patient monitoring) Stress Regadenoson Complete Echo VITAMIN B12 Vitamin D, 25-Hydrox y PROBNP, N TERMINAL HEMOGLOBIN A1c TSH, free T4, total T3 IRON AND TOTAL IRON BINDING CAPACITY FERRITIN COMPREHENSIVE METABO LIC PANEL, W/EGFR CRP, high sensitivit y Lipoprotein (a) LIPID PANEL Microalb/Creatinine Urine, Random HISTORY OF PROCEDURES Procedure Date Procedure Name Provider Procedure Notes S tatus EKG Tato Cruz MD complete d
== END 2024-07-02 09:40 | disposition home or self-care (01) ==
PROVIDERS: PCP Emergency Medicine; Visit Provider Nurse Practitioner Family
DX: Z12.2 Encounter for screening for malignant neoplasm of respiratory organs (principal); Z87.891 Personal history of nicotine dependence
CPT/HCPCS: 71271

== ENCOUNTER 2024-10-03 10:16 | Outpatient (CLI) | payer MEDICARE, SELFPAY ==
--- OUTSIDE RECORDS SUMMARY | 2024-10-03 10:22 | XMS_ITS | Clinical Summary ---
Author Organization [facility] Address [address] [place] [address] Care Team Providers Care Associate Professor Of Medicine Name Role Phone Deangelo Huynh MD Primary Care Provider [phone] Medications gentamicin (GARAMYCIN) 0.1 % cream Apply topically daily. 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
[2024-10-03 10:59] LABS: Hematocrit 33.5 % (37.0-47.0); Hemoglobin 10.2 g/dL (12.0-15.0); Mean Corpuscular HGB Conc 30.4 g/dl (32-36); Mean Corpuscular Hemoglobin 29.5 pg (26-34); Mean Corpuscular Volume 96.8 fl (80-100); Platelet Count Result 148 k/mm3 (150-375); Red Blood Count 3.46 M/mm3 (4.2-5.4); White Blood Count 9.0 K/mm3 (4.5-10.0)
[2024-10-03 11:01] LABS: Add Urine Microscopic? NO; Appearance Urine Clear (Clear); Glucose Urine UA 3+ mg/dL (Negative); Leukocyte Esterase Ur Negative LEU/UL (Negative); Nitrate Urine Negative (Negative); Specific Grav Ur 1.022 (1.001-1.035)
[2024-10-03 11:11] LABS: Hemoglobin A1C 7.4 % (<5.7)
[2024-10-03 11:17] LABS: MALB Creatinine Ratio 108.5 mg/g (0-30)
[2024-10-03 11:22] LABS: Iron 55 ug/dL (37-170)
[2024-10-03 11:25] LABS: Alanine Aminotransferase 14 U/L (6-35); Albumin Level 3.9 g/dL (3.5-5.1); Alkaline Phosphatase 86 U/L (38-126); Anion Gap 6 mmol/L (4-12); Aspartate Amino Transferase 21 U/L (14-36); Bilirubin,Total 0.7 mg/dL (0.2-1.3); Blood Urea Nitrogen 23 mg/dL (7-17); Calcium 9.2 mg/dL (8.4-10.2); Carbon Dioxide 27 mmol/L (22-30); Chloride 103 mmol/L (98-107); Cholesterol 102 mg/dL (0-200); Estimated Glomerular Filt Rate 60; Glucose 164 mg/dL (65-110); HDL Direct 43 mg/dL; Potassium 4.7 mmol/L (3.4-5.0); Sodium 136 mmol/L (137-145); Total Protein 7.8 g/dL (6.3-8.2); Triglycerides 80 mg/dL (<150)
[2024-10-03 11:32] LABS: Percent Iron Saturation 16 % (20-50)
[2024-10-03 11:41] LABS: Free T4 Free Thyroxine 1.10 ng/dL (0.78-2.19)
[2024-10-03 12:01] LABS: Thyroid Stimulating Hormone 2.630 uIU/mL (0.465-4.680)
== END 2024-10-03 10:17 | disposition home or self-care (01) ==
PROVIDERS: PCP Emergency Medicine; Visit Provider Emergency Medicine
DX: D64.9 Anemia, unspecified (principal); E11.9 Type 2 diabetes mellitus without complications; I10 Essential (primary) hypertension; E55.9 Vitamin D deficiency, unspecified; J44.9 Chronic obstructive pulmonary disease, unspecified; G62.9 Polyneuropathy, unspecified
CPT/HCPCS: 36415; 80053; 80061; 81003; 82043; 82306; 83036; 83540; 83550; 84439; 84443; 85027